=== PATIENT | female | born 1935 | race Caucasian/White ===

== ENCOUNTER 2017-05-04 09:54 | Emergency (ER) | payer MEDICARE, OTHER ==
[2017-05-04 10:04] VITALS: PULSE 86; RESP 18; TEMP 98.4
[2017-05-04] MEDS ORDERED: SODIUM CHLORIDE 0.9% 1,000 ML IV STA (10:18)
[2017-05-04] MEDS ORDERED: SODIUM CHLORIDE 0.9% 500 ML IV STA (10:18)
[2017-05-04] MEDS ORDERED: MORPHINE SULFATE 2 MG/ML SYRINGE IVP STA (10:18)
[2017-05-04] MEDS ORDERED: ONDANSETRON 4 MG/2 ML VIAL IVP STA (10:18)
[2017-05-04] MEDS ORDERED: RX INFO: IV CONTRAST WAS GIVEN 1 EACH MISC MISCELLANE PRN (10:19)
--- NOTE | 2017-05-04 10:21 | ED ---
General Adult HPI - General Chief complaint: Nausea/Vomiting/Diarrhea Stated complaint: hematuria Time Seen by Provider: 05/04/17 10:10 Source: patient, RN notes reviewed Mode of arrival: wheelchair Limitations: no limitations - History of Present Illness Initial comments: Patient 82-year-old female who presents emergency room today with a chief complaint of symptoms of nausea vomiting diarrhea over the last 4-5 days. Patient states that she has seen small amount of blood in the stool as well. She believes is due to a hemorrhoid. She states that the blood is been less and less over the last few days. Patient does admit to chronic pain on the right side of her abdomen due to postherpetic neuralgia. She states pain seems to be worse last few days. She states she's had to kind even drinking keeping anything down due to the nausea vomiting. She denies any other complaints or symptoms at this time. Patient denies any recent fever, chills, shortness of breath, chest pain, back pain, numbness or tingling, dysuria or hematuria, constipation, headaches or visual changes, or any other complaints. - Related Data Home Medications Medication Instructions Recorded Confirmed Ferrous Sulfate [Iron (65 MG 325 mg PO HS 12/24/15 05/04/17 Elemental)] Gabapentin [Neurontin] 300 mg PO Q4H 12/24/15 05/04/17 Metoprolol Tartrate [Lopressor] 100 mg PO BID 12/24/15 05/04/17 Simvastatin [Zocor] 40 mg PO HS 12/24/15 05/04/17 Vits A,C,E/Lutein/Minerals 1 tab PO DAILY 12/24/15 05/04/17 [Ocuvite with Lutein Tablet] traMADol HCL [Ultram] 50 mg PO Q4HR PRN 02/19/16 05/04/17 Glimepiride [Glimepiride] 1 mg PO BID 04/25/16 05/04/17 Lisinopril-Hctz 20-12.5 mg 1 tab PO QAM 04/25/16 05/04/17 [Zestoretic 20-12.5] Nortriptyline [Pamelor] 25 mg PO HS 04/25/16 05/04/17 Pioglitazone [Actos] 30 mg PO QAM 04/25/16 05/04/17 metFORMIN HCL [Glucophage] 500 mg PO BID 04/25/16 05/04/17 Calcium Carbonate [Calcium] 600 mg PO DAILY 05/04/17 05/04/17 Exemestane [Aromasin] 25 mg PO HS 05/04/17 05/04/17 Previous Rx's Medication Instructions Recorded Hydrocortisone Pr Cream 1 applic RECTAL TID #1 tube 05/04/17 [Proctosol-Hc 2.5%] Ondansetron Odt [Zofran ODT] 4 mg PO Q8HR PRN #20 tab 05/04/17 Allergies Allergy/AdvReac Type Severity Reaction Status Date / Time No Known Allergies Allergy Verified 05/04/17 10:35 Review of Systems ROS Statement: Those systems with pertinent positive or pertinent negative responses have been documented in the HPI. ROS Other: All systems not noted in ROS Statement are negative. Past Medical History Past Medical History: Cancer, Diabetes Mellitus, Hyperlipidemia, Hypertension Additional Past Medical History / Comment(s): SHINGLES, RIGHT SIDE ABD. BREAST CANCER 1998 OR, Reoccurence 2009-with 35 radiation treatments. NEW TUMOR FOUND THIS MARCH 2016, APPT WITH DR. MORE. OCC INCONT OF URINE (DEPENDS). "TACHYCARDIA". BOWEL OBSTRUCTION. History of Any Multi-Drug Resistant Organisms: None Reported Past Surgical History: Appendectomy, Bowel Resection, Breast Surgery, Cholecystectomy Additional Past Surgical History / Comment(s): 03/25/16 tumor left chest area ( positive). 12/26/15 Bowel resection. 1998, Bilateral mastectomy. JAMES CATARACTS. Past Anesthesia/Blood Transfusion Reactions: No Reported Reaction Past Psychological History: No Psychological Hx Reported Smoking Status: Former smoker Past Alcohol Use History: None Reported Past Drug Use History: None Reported - Past Family History Father Family Medical History: Myocardial Infarction ([place]) Mother Family Medical History: Cancer Additional Family Medical History / Comment(s): BREAST CANCER General Exam - General Exam Comments Initial Comments: General: The patient is awake and alert, in no distress, and does not appear acutely ill. Eye: Pupils are equal, round and reactive to light, extra-ocular movements are intact. No nystagmus. There is normal conjunctiva bilaterally. No signs of icterus. Ears, nose, mouth and throat: There are moist mucous membranes and no oral lesions. Neck: The neck is supple, there is no tenderness or JVD. Cardiovascular: There is a regular rate and rhythm. No murmur, rub or gallop is appreciated. Respiratory: Lungs are clear to auscultation, respirations are non-labored, breath sounds are equal. No wheezes, stridor, rales, or rhonchi. Gastrointestinal: Normal appearance abdomen. Normal bowel sounds. Soft on palpation. Patient does have mild tenderness on the right side of the abdomen. No tenderness on the left. No rebound tenderness. No guarding. Musculoskeletal: Normal ROM, no tenderness. Strength 5/5. Sensation intact. Pulses equal bilaterally 2+. Neurological: A&O x 3. CN II-XII intact, There are no obvious motor or sensory deficits. Coordination appears grossly intact. Speech is normal. Skin: Skin is warm and dry and no rashes or lesions are noted. Psychiatric: Cooperative, appropriate mood & affect, normal judgment. Limitations: no limitations Course Vital Signs 05/04/17 10:01 Temperature 98.4 F Pulse Rate 86 Respiratory 18 Rate Blood Pressure 136/80 O2 Sat by Pulse 97 Oximetry Medical Decision Making - Medical Decision Making Case discussed in detail with attending physician Patient reexamined at this time shows no signs of distress resting comfortably. Patient's labs been reviewed. CT of the abdomen and pelvis shows ileus versus enteritis. At this time patient resting comfortably. Patient feels well here like to be discharged home will be given a prescription for Zofran. Advised to increase her oral fluids staying hydrated. Patient states she knows there is a hemorrhoid back. She declined a rectal exam here in the emergency room. She will be given a prescription for some cramping. Advised follow-up the family doctor. Advised return if symptoms increase or worsen. Patient and family members at bedside state understanding and agreement with this plan. - Lab Data Result diagrams: 05/04/17 10:37 05/04/17 10:37 Lab Results 05/04/17 05/04/17 05/04/17 Range/Units 10:37 10:37 10:37 WBC 7.6 (3.8-10.6) k/uL RBC 3.46 L (3.80-5.40) m/uL Hgb 10.8 L (11.4-16.0) gm/dL Hct 33.9 L (34.0-46.0) % MCV 98.1 (80.0-100.0) fL MCH 31.3 (25.0-35.0) pg MCHC 31.9 (31.0-37.0) g/dL RDW 14.7 (11.5-15.5) % Plt Count 250 (150-450) k/uL Neutrophils % 76 % Lymphocytes % 14 % Monocytes % 6 % Eosinophils % 1 % Basophils % 1 % Neutrophils # 5.8 (1.3-7.7) k/uL Lymphocytes # 1.1 (1.0-4.8) k/uL Monocytes # 0.5 (0-1.0) k/uL Eosinophils # 0.1 (0-0.7) k/uL Basophils # 0.1 (0-0.2) k/uL PT 11.2 (9.0-12.0) sec INR 1.1 (<1.2) APTT 22.8 (22.0-30.0) sec Sodium 141 (137-145) mmol/L Potassium 4.0 (3.5-5.1) mmol/L Chloride 102 (98-107) mmol/L Carbon Dioxide 30 (22-30) mmol/L Anion Gap 9 mmol/L BUN 29 H (7-17) mg/dL Creatinine 0.96 (0.52-1.04) mg/dL Est GFR (MDRD) Af Amer >60 (>60 ml/min/1.73 sqM) Est GFR (MDRD) Non-Af 56 (>60 ml/min/1.73 sqM) Glucose 152 H (74-99) mg/dL Calcium 9.3 (8.4-10.2) mg/dL Total Bilirubin 0.2 (0.2-1.3) mg/dL AST 32 (14-36) U/L ALT 33 (9-52) U/L Alkaline Phosphatase 54 (38-126) U/L Total Protein 6.1 L (6.3-8.2) g/dL Albumin 3.6 (3.5-5.0) g/dL Amylase 31 (30-110) U/L Lipase 167 (23-300) U/L Disposition Clinical Impression: Nausea vomiting and diarrhea Disposition: HOME SELF-CARE Condition: Good Instructions: Acute Nausea and Vomiting (ED) Additional Instructions: Please follow-up the family doctor next 1-2 days. Please use medications as prescribed. Please return to emergency room if any symptoms increase or worsen or for any other concerns. Prescriptions: Hydrocortisone Pr Cream [Proctosol-Hc 2.5%] 1 applic RECTAL TID #1 tube Ondansetron Odt [Zofran ODT] 4 mg PO Q8HR PRN #20 tab PRN Reason: Nausea Referrals: Milan Chu MD [Primary Care Provider] - 1-2 days Time of Disposition: 12:43
[2017-05-04 11:06] LABS: Basophils # (A) 0.1 k/uL (0-0.2); Basophils % (A) 1 %; CH 32.2; Eosinophils # (A) 0.1 k/uL (0-0.7); Eosinophils % (A) 1 %; HCT 33.9 % (34.0-46.0); HDW 2.44; HGB 10.8 gm/dL (11.4-16.0); Luc # (Auto) 0.18; Luc % (Auto) 2; Lymphocytes # (A) 1.1 k/uL (1.0-4.8); Lymphocytes % (A) 14 %; MCH 31.3 pg (25.0-35.0); MCHC 31.9 g/dL (31.0-37.0); MCV 98.1 fL (80.0-100.0); Mean Platelet Volume 7.1; Monocytes # (A) 0.5 k/uL (0-1.0); Monocytes % (A) 6 %; Neutrophils # (A) 5.8 k/uL (1.3-7.7); Neutrophils % (A) 76 %; RBC 3.46 m/uL (3.80-5.40); RDW 14.7 % (11.5-15.5); WBC 7.6 k/uL (3.8-10.6); WBC (Perox) 7.66
[2017-05-04 11:18] LABS: ALT 33 U/L (9-52); AST 32 U/L (14-36); Alkaline Phosphatase 54 U/L (38-126); Amylase 31 U/L (30-110); Anion Gap 9 mmol/L; Blood Urea Nitrogen 29 mg/dL (7-17); Calcium 9.3 mg/dL (8.4-10.2); Carbon Dioxide 30 mmol/L (22-30); Chloride 102 mmol/L (98-107); Glucose 152 mg/dL (74-99); Non-African American GFR(MDRD) 56 (>60 ml/min/1.73 sqM); Sodium 141 mmol/L (137-145); Total Bilirubin 0.2 mg/dL (0.2-1.3); Total Protein 6.1 g/dL (6.3-8.2)
[2017-05-04 11:39] LABS: INR 1.1 (<1.2); Partial Thromboplastin Time 22.8 sec (22.0-30.0); Prothrombin Time 11.2 sec (9.0-12.0)
--- NOTE | 2017-05-04 12:23 | CT ---
EXAMINATION TYPE: CT abdomen pelvis w con DATE OF EXAM: 05/04/2017 COMPARISON: CT chest abdomen pelvis 02/19/2016 INDICATION: pain, hematuria, diarrhea, loss of appetite DLP: 334.2 mGycm, Automated exposure control for dose reduction was used. CONTRAST: 80 mL of Visipaque 320. Study performed without Oral Contrast TECHNIQUE: Axial images were obtained from above the diaphragm to the pubic rami in the axial plane a t 5 mm thick sections. Reconstructed images are reviewed on the computer in the coronal plane. FINDINGS: Limited CT sections are obtained the lung bases. Some streak opacities in the posterior lateral righ t lung base. Bilateral breast prostheses are likely present. Vascular calcifications within the desce nding thoracic aorta. A small hiatal hernia is present. CT ABDOMEN: Liver: Normal Spleen: Normal Pancreas: Atrophic Adrenal glands: The adrenal glands are normal. Gallbladder: Surgically absent Kidneys: No masses are evident. No hydronephrosis is present. Small cortical renal cysts are presen t bilaterally. Delayed images were obtained through the kidneys, which remain unremarkable. Aorta: Vascular calcification is within the aorta. There is some minimal fusiform prominence of the mid to distal abdominal aorta measuring 2.0 cm AP dimension. Inferior vena cava: Normal. CT PELVIS: Proximal small bowel loops appear prominent containing fluid. These loops are slightly dilated. Some wall enhancement may be present. Consider enteritis in the left upper quadrant. Note is made of diver ticular changes within the sigmoid colon. There are loops of bowel which are incompletely distended o r lack oral contrast limiting their evaluation. Appendix: Normal as visualized. Urinary bladder: Normal. Genitourinary structures: Uterus is unremarkable. Adnexal regions are clear. Osseous structures: No suspicious lytic or sclerotic lesions. IMPRESSIONS: 1. Mild dilated small bowel loops with prominent wall visualization. Correlate for ileus or regional enteritis in left upper quadrant. 2. No suspicious changes to suggest obstruction. 3. Diverticulosis without acute diverticulitis. 4. Small hiatal hernia.
[2017-05-04 12:46] VITALS: BP 122/56
== END 2017-05-04 12:51 | disposition home or self-care (01) ==
LOC: EC 09:54
DX: R11.2 Nausea with vomiting, unspecified (principal); R19.7 Diarrhea, unspecified; E11.9 Type 2 diabetes mellitus without complications; E78.5 Hyperlipidemia, unspecified; I10 Essential (primary) hypertension; Z85.3 Personal history of malignant neoplasm of breast; Z87.891 Personal history of nicotine dependence; Z79.84 Long term (current) use of oral hypoglycemic drugs; Z79.899 Other long term (current) drug therapy
CPT/HCPCS: 36415; 80053; 82150; 83690; 85025; 85610; 85730; 74177; 99284; 96374; 96375; 96361 ×2; Q9967; J2405; J2270

== ENCOUNTER 2017-05-14 13:46 | Emergency (ER) | payer MEDICARE ==
[2017-05-14 14:01] VITALS: RESP 18
--- NOTE | 2017-05-14 14:20 | ED ---
Abdominal Pain HPI - General Chief Complaint: Abdominal Pain Stated Complaint: Abd Pain Time Seen by Provider: 05/14/17 14:08 Source: patient, RN/MD Mode of arrival: EMS Limitations: no limitations - History of Present Illness Initial Comments: Patient is an 82-year-old female with past medical history significant for chronic right sided abdominal pain who presents to the emergency department for evaluation of decreased oral intake, concern for dehydration and altered mental status. Patient was seen and evaluated in the emergency department 10 days ago which time a CT revealed mild inflammation of the small bowel but no signs of acute small bowel obstruction or diverticulitis. At that time the patient was experiencing diarrhea with bleeding hemorrhoids. Patient was discharged home and reported she did okay for a few days. Family states that over the past few days she has not been eating or drinking much and they have become concerned that she may be dehydrated. The daughter at bedside states that last night the patient seemed confused and was possibly hallucinating, daughter states that this is happened before when her mother is dehydrated. The patient states that she doesn't want to eat or drink and that there is nothing that sounds appetizing to her. She denies any nausea. Her states that she occasionally has small episodes of spitting up or vomiting after eating most recently was last night, she had small-volume nonbloody nonbilious emesis. Patient states that her abdominal pain has not changed but has remained constant right sided for about a year and a half. Patient has followed with her primary care physician and been evaluated in the emergency department for this chronic pain. Her primary care physician his attributed this pain to postherpetic neuralgia. She has not followed up with a neurologist or roofing supervisor regarding this pain. - Related Data Home Medications Medication Instructions Recorded Confirmed Metoprolol Tartrate [Lopressor] 100 mg PO BID 12/24/15 05/14/17 Morphine Sulfate ER [Ms Contin 15 mg PO Q12HR 05/14/17 05/14/17 15Mg] Previous Rx's Medication Instructions Recorded Ciprofloxacin HCl [Cipro] 500 mg PO Q12HR #14 tablet 05/14/17 Sennosides [Senna] 8.6 mg PO DAILY #30 tablet 05/14/17 Allergies Allergy/AdvReac Type Severity Reaction Status Date / Time No Known Allergies Allergy Verified 05/14/17 14:18 Review of Systems ROS Statement: Those systems with pertinent positive or pertinent negative responses have been documented in the HPI. ROS Other: All systems not noted in ROS Statement are negative. Constitutional: Reports: chills, weakness (generalized). Denies: fever Eyes: Denies: vision change ENT: Denies: throat pain Respiratory: Denies: cough, dyspnea Cardiovascular: Denies: chest pain, palpitations, dyspnea on exertion Endocrine: Reports: fatigue Gastrointestinal: Reports: abdominal pain, vomiting, constipation (cannot recall last BM). Denies: nausea, diarrhea, hematemesis, melena, hematochezia Genitourinary: Denies: dysuria, frequency Musculoskeletal: Denies: back pain Skin: Denies: rash, change in color Neurological: Denies: headache Hematological/Lymphatic: Reports: easy bruising Past Medical History Past Medical History: Cancer, Diabetes Mellitus, Hyperlipidemia, Hypertension Additional Past Medical History / Comment(s): SHINGLES, RIGHT SIDE ABD. BREAST CANCER 1998 OR, Reoccurence 2009-with 35 radiation treatments. NEW TUMOR FOUND THIS MARCH 2016, APPT WITH DR. MORE. OCC INCONT OF URINE (DEPENDS). "TACHYCARDIA". BOWEL OBSTRUCTION. History of Any Multi-Drug Resistant Organisms: None Reported Past Surgical History: Appendectomy, Bowel Resection, Breast Surgery, Cholecystectomy Additional Past Surgical History / Comment(s): 03/25/16 tumor left chest area ( positive). 12/26/15 Bowel resection. 1998, Bilateral mastectomy. JAMES CATARACTS. Past Anesthesia/Blood Transfusion Reactions: No Reported Reaction Past Psychological History: No Psychological Hx Reported Smoking Status: Former smoker Past Alcohol Use History: None Reported Past Drug Use History: None Reported - Past Family History Father Family Medical History: Myocardial Infarction ([place]) Mother Family Medical History: Cancer Additional Family Medical History / Comment(s): BREAST CANCER General Exam Limitations: no limitations General appearance: alert, in no apparent distress Head exam: Present: atraumatic, normocephalic Eye exam: Present: normal appearance, PERRL ENT exam: Present: normal exam Neck exam: Present: normal inspection Respiratory exam: Present: normal lung sounds bilaterally. Absent: respiratory distress Cardiovascular Exam: Present: regular rate, normal rhythm GI/Abdominal exam: Present: soft, tenderness, guarding, normal bowel sounds. Absent: distended, rebound, rigid, hyperactive bowel sounds, hypoactive bowel sounds, organomegaly, mass Extremities exam: Present: normal inspection Neurological exam: Present: alert Psychiatric exam: Present: depressed, flat affect Skin exam: Present: warm, dry (bruises noted on bilateral arms, thin skin with easy bruising) Course Vital Signs 05/14/17 05/14/17 05/14/17 13:58 16:16 18:21 Temperature 97.6 F 98.0 F 98.0 F Pulse Rate 72 91 98 Respiratory 18 18 18 Rate Blood Pressure 157/67 150/68 161/73 O2 Sat by Pulse 96 97 98 Oximetry - Reevaluation(s) Reevaluation #1: Lab and x-ray results were discussed with the patient and family, advised that I recommend digital disimpaction followed by enema for relief of fecal impaction. Patient was digitally disimpacted with large volume of firm stool removed 05/14/17 16:43 Reevaluation #2: Patient tolerated enema and had a large bowel movement afterwards. Patient reported feeling better after the bowel movement. 05/14/17 17:40 Medical Decision Making - Medical Decision Making Patient was seen and evaluated, vital signs were reviewed History obtained from the patient, family at bedside and medical records History and physical exam consistent with chronic abdominal pain concern for constipation likely secondary to narcotic pain medication use Labs and x-rays ordered Labs reviewed Urinalysis suggestive of possible urinary tract infection X-ray consistent with fecal impaction Patient was digitally disimpacted with large volume of hard stool removed Patient tolerated enema and subsequently had very large bowel movement with improvement in abdominal pain Or questions pertaining to care were answered for the patient as well as her family. Patient was discharged home with prescription for stool softener and advised to follow-up with her primary care doctor or return to the ER for any acute worsening. Patient and family expressed understanding and agreement with the plan. - Lab Data Result diagrams: 05/14/17 14:20 05/14/17 14:20 Lab Results 05/14/17 05/14/17 05/14/17 Range/Units 13:10 14:20 14:20 WBC 6.3 (3.8-10.6) k/uL RBC 4.11 (3.80-5.40) m/uL Hgb 13.1 (11.4-16.0) gm/dL Hct 38.7 (34.0-46.0) % MCV 94.2 (80.0-100.0) fL MCH 31.8 (25.0-35.0) pg MCHC 33.8 (31.0-37.0) g/dL RDW 14.0 (11.5-15.5) % Plt Count 269 (150-450) k/uL Neutrophils % 73 % Lymphocytes % 16 % Monocytes % 6 % Eosinophils % 3 % Basophils % 0 % Neutrophils # 4.6 (1.3-7.7) k/uL Lymphocytes # 1.0 (1.0-4.8) k/uL Monocytes # 0.4 (0-1.0) k/uL Eosinophils # 0.2 (0-0.7) k/uL Basophils # 0.0 (0-0.2) k/uL Sodium 139 (137-145) mmol/L Potassium 4.7 (3.5-5.1) mmol/L Chloride 102 (98-107) mmol/L Carbon Dioxide 25 (22-30) mmol/L Anion Gap 12 mmol/L BUN 22 H (7-17) mg/dL Creatinine 0.81 (0.52-1.04) mg/dL Est GFR (MDRD) Af Amer >60 (>60 ml/min/1.73 sqM) Est GFR (MDRD) Non-Af >60 (>60 ml/min/1.73 sqM) Glucose 146 H (74-99) mg/dL Calcium 9.5 (8.4-10.2) mg/dL Total Bilirubin 0.5 (0.2-1.3) mg/dL AST 32 (14-36) U/L ALT 27 (9-52) U/L Alkaline Phosphatase 56 (38-126) U/L Total Protein 7.0 (6.3-8.2) g/dL Albumin 4.0 (3.5-5.0) g/dL Urine Color Yellow Urine Appearance Clear (Clear) Urine pH 5.5 (5.0-8.0) Ur Specific [place] 1.021 (1.001-1.035) Urine Protein 1+ H (Negative) Urine Glucose (UA) Negative (Negative) Urine Ketones 2+ H (Negative) Urine Blood Trace H (Negative) Urine Nitrite Negative (Negative) Urine Bilirubin Negative (Negative) Urine Urobilinogen <2.0 (<2.0) mg/dL Ur Leukocyte Esterase Trace H (Negative) Urine RBC 5 (0-5) /hpf Urine WBC 7 H (0-5) /hpf Urine Bacteria Rare H (None) /hpf Urine Mucus Rare H (None) /hpf Disposition Clinical Impression: Colitis, Fecal impaction in rectum, Narcotic bowel syndrome Disposition: HOME SELF-CARE Condition: Good Prescriptions: Ciprofloxacin HCl [Cipro] 500 mg PO Q12HR #14 tablet Sennosides [Senna] 8.6 mg PO DAILY #30 tablet Referrals: Milan Chu MD [Primary Care Provider] - 1-2 days Time of Disposition: 17:41
[2017-05-14] MEDS ORDERED: SODIUM CHLORIDE 0.9% 1,000 ML IV ONE (14:39)
[2017-05-14 14:47] LABS: Basophils % (A) 0 %; CH 30.9; Eosinophils # (A) 0.2 k/uL (0-0.7); Eosinophils % (A) 3 %; HCT 38.7 % (34.0-46.0); HDW 2.63; HGB 13.1 gm/dL (11.4-16.0); Luc # (Auto) 0.15; Luc % (Auto) 2; Lymphocytes % (A) 16 %; MCH 31.8 pg (25.0-35.0); MCHC 33.8 g/dL (31.0-37.0); MCV 94.2 fL (80.0-100.0); Mean Platelet Volume 6.8; Monocytes # (A) 0.4 k/uL (0-1.0); Monocytes % (A) 6 %; Neutrophils # (A) 4.6 k/uL (1.3-7.7); Neutrophils % (A) 73 %; RBC 4.11 m/uL (3.80-5.40); WBC 6.3 k/uL (3.8-10.6); WBC (Perox) 6.53
[2017-05-14 14:57] LABS: ALT 27 U/L (9-52); AST 32 U/L (14-36); Alkaline Phosphatase 56 U/L (38-126); Anion Gap 12 mmol/L; Blood Urea Nitrogen 22 mg/dL (7-17); Calcium 9.5 mg/dL (8.4-10.2); Carbon Dioxide 25 mmol/L (22-30); Chloride 102 mmol/L (98-107); Glucose 146 mg/dL (74-99); Non-African American GFR(MDRD) >60 (>60 ml/min/1.73 sqM); Potassium 4.7 mmol/L (3.5-5.1); Sodium 139 mmol/L (137-145); Total Bilirubin 0.5 mg/dL (0.2-1.3)
--- NOTE | 2017-05-14 15:26 | XR ---
EXAMINATION TYPE: XR abdomen acute w cxr DATE OF EXAM: 05/14/2017 COMPARISON: 02/22/2016 HISTORY: Abdominal pain, nausea, constipation, diarrhea and fever with confusion. TECHNIQUE: Supine and upright views of the abdomen are obtained. Single frontal chest radiograph was obtained. FINDINGS: There is no focal consolidation, pleural effusion or pneumothorax. Cardiomediastinal silhouette is wi thin normal limits. Osseous structures appear intact. There is no evidence for pneumoperitoneum. Right upper quadrant cholecystectomy clips are seen. There is gaseous distention of the large bowel with fecal impaction measuring up to 7.2 cm. Multiple loops of mildly dilated small bowel are clustered within the left upper abdomen with apparent bowel w all thickening measuring up to 3.8 cm. No sizeable air fluid levels. No mass effects are seen. No unusual calcifications. IMPRESSION: 1. Mildly dilated focal left upper quadrant small bowel loops may possibly relate to focal enteritis as there appears to be bowel wall thickening with reactive ileus. 2. Gaseous distention of the large bowel with fecal impaction.
[2017-05-14 15:27] LABS: Appearance,Urine Clear (Clear); Bacteria,Urine Rare /hpf; Bilirubin,Urine Negative (Negative); Glucose,Urine (UA) Negative (Negative); Ketones,Urine 2+ (Negative); Leukocyte Esterase,Urine Trace (Negative); Mucus,Urine Rare /hpf; Nitrite,Urine Negative (Negative); PH, Urine 5.5 (5.0-8.0); Particle Count 13037; Protein,Urine 1+ (Negative); RBC,Urine 5 /hpf (0-5); Specific Gravity,Urine 1.021 (1.001-1.035); UA Billing (MACRO vs. MICRO) MICRO; Urobilinogen,Urine <2.0 mg/dL (<2.0); WBC,Urine 7 /hpf (0-5)
[2017-05-14 16:17] VITALS: TEMP 98
[2017-05-14] MEDS ORDERED: CIPROFLOXACIN HCL 500 MG TAB PO STA (17:39)
[2017-05-14 18:23] VITALS: BP 161/73; PULSE 98
== END 2017-05-14 18:23 | disposition home or self-care (01) ==
LOC: EC 13:46
DX: K52.9 Noninfective gastroenteritis and colitis, unspecified (principal); K56.41 Fecal impaction; K58.9 Irritable bowel syndrome, unspecified; T40.605A Adverse effect of unspecified narcotics, initial encounter; I10 Essential (primary) hypertension; Z85.3 Personal history of malignant neoplasm of breast; Z87.891 Personal history of nicotine dependence; Z79.891 Long term (current) use of opiate analgesic; Z79.899 Other long term (current) drug therapy
CPT/HCPCS: 36415; 74022; 80053; 81001; 85025; 87086; 93005; 96360; 96361; 99285

== ENCOUNTER 2018-05-23 11:06 | Emergency (ER) | payer MEDICARE ==
[2018-05-23 11:21] VITALS: TEMP 99.3
[2018-05-23] MEDS ORDERED: SODIUM CHLORIDE 0.9% 500 ML IV STA (11:26)
[2018-05-23] MEDS ORDERED: SODIUM CHLORIDE 0.9% 1,000 ML IV STA (11:26)
[2018-05-23] MEDS ORDERED: ONDANSETRON 4 MG/2 ML VIAL IVP STA (11:26)
[2018-05-23] MEDS ORDERED: MORPHINE SULFATE 4 MG/ML SYRINGE IV STA (11:26)
--- NOTE | 2018-05-23 11:37 | ED ---
Nausea/Vomiting/Diarrhea HPI - General Chief complaint: Nausea/Vomiting/Diarrhea Stated complaint: N&V Time Seen by Provider: 05/23/18 11:19 Source: patient, EMS, RN notes reviewed Mode of arrival: EMS Limitations: no limitations - History of Present Illness Initial comments: This an 83-year-old female presents emergency department via EMS with family chief complaint of nausea vomiting diarrhea and weakness. Symptoms have been present for last 3 days. She's been unable to keep anything down and she has decreased appetite. Patient denies any fever but admits to some chills. Denies chest pain or shortness of breath. Patient states that she's had prior abdominal surgeries and instructions. Patient has seen Dr. jordan and Dr. Ja Hampton. Patient states that she feels very weak, run down at this point. She has no dysuria no hematuria. Family states that she is not her usual self as she is very unsteady. - Related Data Home Medications Medication Instructions Recorded Confirmed Metoprolol Tartrate [Lopressor] 100 mg PO BID 12/24/15 05/14/17 Morphine Sulfate ER [Ms Contin 15 mg PO Q12HR 05/14/17 05/14/17 15Mg] Previous Rx's Medication Instructions Recorded Ciprofloxacin HCl [Cipro] 500 mg PO Q12HR #14 tablet 05/14/17 Sennosides [Senna] 8.6 mg PO DAILY #30 tablet 05/14/17 Nitrofurantoin Monohyd/M-Cryst 100 mg PO Q12HR #10 cap 05/23/18 [Macrobid] Ondansetron Odt [Zofran Odt] 4 mg PO Q8HR PRN #14 tab 05/23/18 Allergies Allergy/AdvReac Type Severity Reaction Status Date / Time No Known Allergies Allergy Verified 05/14/17 14:18 Review of Systems ROS Statement: Those systems with pertinent positive or pertinent negative responses have been documented in the HPI. ROS Other: All systems not noted in ROS Statement are negative. Past Medical History Past Medical History: Atrial Fibrillation, Cancer, Diabetes Mellitus, Hyperlipidemia, Hypertension Additional Past Medical History / Comment(s): SHINGLES, RIGHT SIDE ABD. BREAST CANCER 1998 OR, Reoccurence 2009-with 35 radiation treatments. NEW TUMOR FOUND THIS MARCH 2016, APPT WITH DR. MORE. OCC INCONT OF URINE (DEPENDS). "TACHYCARDIA". BOWEL OBSTRUCTION. History of Any Multi-Drug Resistant Organisms: None Reported Past Surgical History: Appendectomy, Bowel Resection, Breast Surgery, Cholecystectomy Additional Past Surgical History / Comment(s): 03/25/16 tumor left chest area ( positive). 12/26/15 Bowel resection. 1999, Bilateral mastectomy. JAMES CATARACTS. Past Anesthesia/Blood Transfusion Reactions: No Reported Reaction Past Psychological History: No Psychological Hx Reported Smoking Status: Former smoker Past Alcohol Use History: None Reported Past Drug Use History: None Reported - Past Family History Father Family Medical History: Myocardial Infarction ([place]) Mother Family Medical History: Cancer Additional Family Medical History / Comment(s): BREAST CANCER General Exam Limitations: no limitations General appearance: alert, in no apparent distress Head exam: Present: atraumatic, normocephalic, normal inspection Eye exam: Present: normal appearance, PERRL, EOMI. Absent: scleral icterus, conjunctival injection, periorbital swelling ENT exam: Present: normal exam, normal oropharynx, mucous membranes moist Neck exam: Present: normal inspection, full ROM. Absent: tenderness, meningismus, lymphadenopathy Respiratory exam: Present: normal lung sounds bilaterally. Absent: respiratory distress, wheezes, rales, rhonchi, stridor Cardiovascular Exam: Present: regular rate, normal rhythm, normal heart sounds. Absent: systolic murmur, diastolic murmur, rubs, gallop, clicks GI/Abdominal exam: Present: soft, tenderness (Mild to moderate right-sided), normal bowel sounds. Absent: distended, guarding, rebound, rigid Back exam: Absent: CVA tenderness (R), CVA tenderness (L) Skin exam: Present: warm, dry, intact, normal color. Absent: rash Course Vital Signs 05/23/18 05/23/18 05/23/18 11:11 12:00 13:00 Temperature 99.3 F Pulse Rate 78 84 90 Respiratory 18 16 16 Rate Blood Pressure 157/72 178/78 160/70 O2 Sat by Pulse 96 94 L 93 L Oximetry 05/23/18 14:23 Temperature Pulse Rate 98 Respiratory 16 Rate Blood Pressure 163/74 O2 Sat by Pulse 91 L Oximetry Medical Decision Making - Medical Decision Making 83-year-old female presents emergency department for nausea vomiting diarrhea. Patient had lab work, IV hydration, antiemetics. Family is concerned due to her condition CT was obtained at this time which showed evidence of an ileus. Patient has had no repeat episodes of vomiting. Patient states she is stable and feels much improved at this time. She will follow-up outpatient return for any worsening symptoms. - Lab Data Result diagrams: 05/23/18 11:45 05/23/18 11:45 Lab Results 05/23/18 05/23/18 05/23/18 Range/Units 11:45 11:45 11:45 WBC 8.0 (3.8-10.6) k/uL RBC 3.95 (3.80-5.40) m/uL Hgb 11.7 (11.4-16.0) gm/dL Hct 36.6 (34.0-46.0) % MCV 92.7 (80.0-100.0) fL MCH 29.7 (25.0-35.0) pg MCHC 32.1 (31.0-37.0) g/dL RDW 13.5 (11.5-15.5) % Plt Count 313 (150-450) k/uL Neutrophils % 75 % Lymphocytes % 16 % Monocytes % 7 % Eosinophils % 0 % Basophils % 0 % Neutrophils # 6.0 (1.3-7.7) k/uL Lymphocytes # 1.3 (1.0-4.8) k/uL Monocytes # 0.5 (0-1.0) k/uL Eosinophils # 0.0 (0-0.7) k/uL Basophils # 0.0 (0-0.2) k/uL Sodium 140 (137-145) mmol/L Potassium 3.3 L (3.5-5.1) mmol/L Chloride 101 (98-107) mmol/L Carbon Dioxide 28 (22-30) mmol/L Anion Gap 11 mmol/L BUN 34 H (7-17) mg/dL Creatinine 0.66 (0.52-1.04) mg/dL Est GFR (CKD-EPI)AfAm >90 (>60 ml/min/1.73 sqM) Est GFR (CKD-EPI)NonAf 83 (>60 ml/min/1.73 sqM) Glucose 174 H (74-99) mg/dL Plasma Lactic Acid [place] 1.0 (0.7-2.0) mmol/L Calcium 8.9 (8.4-10.2) mg/dL Magnesium 1.7 (1.6-2.3) mg/dL Total Bilirubin 0.5 (0.2-1.3) mg/dL AST 36 (14-36) U/L ALT 24 (9-52) U/L Alkaline Phosphatase 53 (38-126) U/L Troponin I (0.000-0.034) ng/mL Total Protein 6.5 (6.3-8.2) g/dL Albumin 3.8 (3.5-5.0) g/dL Amylase 46 (30-110) U/L Lipase 270 (23-300) U/L Urine Color Urine Appearance (Clear) Urine pH (5.0-8.0) Ur Specific [place] (1.001-1.035) Urine Protein (Negative) Urine Glucose (UA) (Negative) Urine Ketones (Negative) Urine Blood (Negative) Urine Nitrite (Negative) Urine Bilirubin (Negative) Urine Urobilinogen (<2.0) mg/dL Ur Leukocyte Esterase (Negative) Urine RBC (0-5) /hpf Urine WBC (0-5) /hpf Urine Bacteria (None) /hpf Urine Mucus (None) /hpf 05/23/18 05/23/18 Range/Units 11:45 13:00 WBC (3.8-10.6) k/uL RBC (3.80-5.40) m/uL Hgb (11.4-16.0) gm/dL Hct (34.0-46.0) % MCV (80.0-100.0) fL MCH (25.0-35.0) pg MCHC (31.0-37.0) g/dL RDW (11.5-15.5) % Plt Count (150-450) k/uL Neutrophils % % Lymphocytes % % Monocytes % % Eosinophils % % Basophils % % Neutrophils # (1.3-7.7) k/uL Lymphocytes # (1.0-4.8) k/uL Monocytes # (0-1.0) k/uL Eosinophils # (0-0.7) k/uL Basophils # (0-0.2) k/uL Sodium (137-145) mmol/L Potassium (3.5-5.1) mmol/L Chloride (98-107) mmol/L Carbon Dioxide (22-30) mmol/L Anion Gap mmol/L BUN (7-17) mg/dL Creatinine (0.52-1.04) mg/dL Est GFR (CKD-EPI)AfAm (>60 ml/min/1.73 sqM) Est GFR (CKD-EPI)NonAf (>60 ml/min/1.73 sqM) Glucose (74-99) mg/dL Plasma Lactic Acid [place] (0.7-2.0) mmol/L Calcium (8.4-10.2) mg/dL Magnesium (1.6-2.3) mg/dL Total Bilirubin (0.2-1.3) mg/dL AST (14-36) U/L ALT (9-52) U/L Alkaline Phosphatase (38-126) U/L Troponin I 0.022 (0.000-0.034) ng/mL Total Protein (6.3-8.2) g/dL Albumin (3.5-5.0) g/dL Amylase (30-110) U/L Lipase (23-300) U/L Urine Color Yellow Urine Appearance Clear (Clear) Urine pH 5.5 (5.0-8.0) Ur Specific [place] 1.021 (1.001-1.035) Urine Protein 2+ H (Negative) Urine Glucose (UA) Negative (Negative) Urine Ketones 2+ H (Negative) Urine Blood Negative (Negative) Urine Nitrite Positive H (Negative) Urine Bilirubin Negative (Negative) Urine Urobilinogen <2.0 (<2.0) mg/dL Ur Leukocyte Esterase Negative (Negative) Urine RBC 1 (0-5) /hpf Urine WBC 3 (0-5) /hpf Urine Bacteria Many H (None) /hpf Urine Mucus Rare H (None) /hpf - EKG Data EKG Comments: EKG performed at 11:33 normal sinus rhythm with rate of 88 OR 172 QRS 80 QT/QTC 356/4:30 Disposition Clinical Impression: Nausea & vomiting, Abdominal pain, UTI (urinary tract infection) Disposition: HOME SELF-CARE Condition: Stable Instructions: Acute Nausea and Vomiting (ED) Additional Instructions: Please return to the Emergency Department if symptoms worsen or any other concerns. Prescriptions: Nitrofurantoin Monohyd/M-Cryst [Macrobid] 100 mg PO Q12HR #10 cap Ondansetron Odt [Zofran Odt] 4 mg PO Q8HR PRN #14 tab PRN Reason: Nausea Is patient prescribed a controlled substance at d/c from ED?: No Referrals: Milan Chu MD [Primary Care Provider] - 1-2 days Time of Disposition: 14:51
[2018-05-23 11:55] LABS: Basophils % (A) 0 %; Eosinophils % (A) 0 %; HCT 36.6 % (34.0-46.0); HGB 11.7 gm/dL (11.4-16.0); Lymphocytes # (A) 1.3 k/uL (1.0-4.8); Lymphocytes % (A) 16 %; MCH 29.7 pg (25.0-35.0); MCHC 32.1 g/dL (31.0-37.0); MCV 92.7 fL (80.0-100.0); Mean Platelet Volume 7.2; Monocytes # (A) 0.5 k/uL (0-1.0); Monocytes % (A) 7 %; Neutrophils % (A) 75 %; Platelet Count 313 k/uL (150-450); RBC 3.95 m/uL (3.80-5.40); RDW 13.5 % (11.5-15.5)
[2018-05-23 12:04] LABS: ALT 24 U/L (9-52); AST 36 U/L (14-36); Albumin 3.8 g/dL (3.5-5.0); Alkaline Phosphatase 53 U/L (38-126); Amylase 46 U/L (30-110); Anion Gap 11 mmol/L; Blood Urea Nitrogen 34 mg/dL (7-17); Calcium 8.9 mg/dL (8.4-10.2); Carbon Dioxide 28 mmol/L (22-30); Chloride 101 mmol/L (98-107); Glucose 174 mg/dL (74-99); Lipase 270 U/L (23-300); Magnesium 1.7 mg/dL (1.6-2.3); Potassium 3.3 mmol/L (3.5-5.1); Sodium 140 mmol/L (137-145); Total Bilirubin 0.5 mg/dL (0.2-1.3); Total Protein 6.5 g/dL (6.3-8.2)
--- NOTE | 2018-05-23 12:23 | XR ---
EXAMINATION TYPE: XR chest 2V DATE OF EXAM: 05/23/2018 HISTORY: Cough/pain. REFERENCE: Previous study dated 02/21/2016. FINDINGS: There has been a previous left axillary dissection. Lung volumes are prominent. The heart i s mildly prominent. The lungs appear clear. Pleural spaces are clear. IMPRESSION: 1. MILD CARDIOMEGALY. 2. CORRELATE FOR COPD.
--- NOTE | 2018-05-23 12:24 | XR ---
EXAMINATION TYPE: XR KUB , ONE VIEW DATE OF EXAM ORDERED: 05/23/2018 HISTORY: pain. COMPARISON: Previous study dated 02/20/2016. FINDINGS: The abdominal gas pattern is within normal limits. There is no evidence of obstruction or gross free air. No unusual calcifications are seen. The gallbladder is been removed. IMPRESSION: NO ACUTE INTRA-ABDOMINAL ABNORMALITY.
[2018-05-23 13:16] LABS: Appearance,Urine Clear (Clear); Bacteria,Urine Many /hpf; Bilirubin,Urine Negative (Negative); Blood,Urine Negative (Negative); Color,Urine Yellow; Glucose,Urine (UA) Negative (Negative); Ketones,Urine 2+ (Negative); Leukocyte Esterase,Urine Negative (Negative); Mucus,Urine Rare /hpf; Nitrite,Urine Positive (Negative); PH, Urine 5.5 (5.0-8.0); Protein,Urine 2+ (Negative); RBC,Urine 1 /hpf (0-5); Specific Gravity,Urine 1.021 (1.001-1.035); Urobilinogen,Urine <2.0 mg/dL (<2.0); WBC,Urine 3 /hpf (0-5)
[2018-05-23] MEDS ORDERED: KETOROLAC 30 MG/ML 1 ML VIAL IVP STA (13:46)
[2018-05-23] MEDS ORDERED: cefTRIAXone IN SWFI 1,000 MG/10 ML SYRINGE IVP STA (13:48)
[2018-05-23 14:23] VITALS: RESP 16
--- NOTE | 2018-05-23 14:35 | CT ---
EXAMINATION TYPE: CT abdomen pelvis w con DATE OF EXAM: 05/23/2018 COMPARISON: 05/04/2017 INDICATION: Nausea and vomiting DLP: 324.8 mGycm, Automated exposure control for dose reduction was used. CONTRAST: 80 mL of Isovue 300. Study performed without Oral Contrast TECHNIQUE: Axial images were obtained from above the diaphragm to the pubic rami in the axial plane a t 5 mm thick sections. Reconstructed images are reviewed on the computer in the coronal plane. FINDINGS: Limited CT sections are obtained the lung bases. The lung bases are clear. Bilateral breast prosthe ses are present. CT ABDOMEN: Liver: Normal Spleen: Normal Pancreas: Atrophic Adrenal glands: The adrenal glands are normal. Gallbladder: Surgically absent Kidneys: No masses are evident. No hydronephrosis is present. 0.6 cm cortical renal cyst is present on the posterior inferior right kidney. Tiny exophytic cortical renal cysts likely present on the la teral left mid kidney. Additional cysts in the anterior right mid kidney measuring 1.0 cm. 0.4 cm ca lcification which appears to be nonobstructing as in the mid anterior left kidney. Aorta: Vascular calcification is within the aorta. Inferior vena cava: Normal. CT PELVIS: Multiple fluid-filled dilated small bowel loops are evident within the left upper abdomen. Decompress ed colon is present. An anastomosis is identified in the mid pelvis. Multiple diverticuli are in the region of the sigmoid colon. The zone of transition is not clearly identified. Partial small bowel ob struction could be considered. Ileus would be within the differential findings appear somewhat chroni c from comparison. Study is performed without oral contrast limiting the evaluation. Appendix: Not clearly identified, but may be the appendix is normal. Adjacent inflammatory changes ar e not identified. No dilated tubular structures in the right lower quadrant. No free fluid is within the pelvis. Urinary bladder: Normal. Genitourinary structures: Uterus and ovaries appear within normal limits. Osseous structures: No suspicious lytic or sclerotic lesions. IMPRESSIONS: 1. Chronic appearing changes within the bowel including prior surgery with anastomosis, prominent fl uid-filled small bowel loops in the left upper quadrant and decompressed colon with diverticulosis wi thout acute diverticulitis. Findings are similar to the April 2017 examination. Ileus is favored wit hin the differential. Low-grade partial small bowel obstruction could be considered within the differ ential.
[2018-05-23] MEDS ORDERED: ONDANSETRON 4 MG ODT STARTER PACK 2 TAB BTL PO STA (14:50)
[2018-05-23] MEDS ORDERED: ACET/COD 300 MG/30 MG STARTER PACK 6 TAB BTL PO STA (15:07)
[2018-05-23 15:13] VITALS: BP 150/70; PULSE 95
== END 2018-05-23 15:05 | disposition home or self-care (01) ==
LOC: EC 11:06
DX: N39.0 Urinary tract infection, site not specified (principal); R11.2 Nausea with vomiting, unspecified; K56.7 Ileus, unspecified; R19.7 Diarrhea, unspecified; Z87.891 Personal history of nicotine dependence; I10 Essential (primary) hypertension; Z79.891 Long term (current) use of opiate analgesic; Z79.899 Other long term (current) drug therapy; Z85.3 Personal history of malignant neoplasm of breast; Z92.3 Personal history of irradiation; Z90.13 Acquired absence of bilateral breasts and nipples; Z90.49 Acquired absence of other specified parts of digestive tract
CPT/HCPCS: 99285; 96374; 96375 ×3; 96361; 36415; 93005; 80053; 82150; 83605; 83690; 83735; 84484; 85025; 81001; 87040; 71046; 74018; 74177; J2270; J2405; J0696; J1885; S0119; Q9967

== ENCOUNTER 2019-02-28 11:59 | Inpatient (IN) | payer MEDICARE, OTHER ==
[2019-02-28] MEDS ORDERED: IPRATROPIUM-ALBUTEROL 3 ML NEB INHALATION STA (12:18)
[2019-02-28] MEDS ORDERED: SODIUM CHLORIDE 0.9% 1,000 ML IV STA (12:18)
--- NOTE | 2019-02-28 12:22 | ED ---
SOB HPI - General Source: RN notes reviewed, old records reviewed <aMry Galaviz - Last Filed: 02/28/19 15:09> <Saw Hampton - Last Filed: 02/28/19 16:17> - General Chief Complaint: Shortness of Breath Stated Complaint: TIFFANY Time Seen by Provider: 02/28/19 12:08 - History of Present Illness Initial Comments: Patient is a 83-year-old female presents emergency room today with progressive shortness of breath for the past 10 days. Patient has a history of atrial fibrillation, cancer, diabetes and hyperlipidemia. She denies any previous cardiac stenting. She does complain of some chest pressure. She reportedly had an episode of diaphoresis, and severe dyspnea on exertion yesterday. She did not want to come to the hospital yesterday but felt worse they decided she needed to be evaluated. Patient has had no known fevers or chills. She reports that her cough has been nonproductive. She denies any lower extremity swelling. Patient denies any changes in urination or bowel habits. Patient does report a history of chronic right side pain, most likely related to postherpetic neuralgia. She's been having these symptoms for 3-4 years. She has a history of breast cancer, currently in remission. She states that her oncologist was Dr. Jorge. (Mary Galaviz) - Related Data Home Medications Medication Instructions Recorded Confirmed Metoprolol Tartrate [Lopressor] 100 mg PO BID 12/24/15 02/28/19 Acetaminophen-Codeine 300-30mg 2 tab PO QID 02/28/19 02/28/19 [Tylenol w/codeine #3] Aspirin [[place] Aspirin EC] 81 mg PO DAILY 02/28/19 02/28/19 Dicyclomine [Bentyl] 10 mg PO TID 02/28/19 02/28/19 Mirtazapine [Remeron] 15 mg PO HS 02/28/19 02/28/19 Previous Rx's Medication Instructions Recorded Ondansetron Odt [Zofran Odt] 4 mg PO Q8HR PRN #14 tab 05/23/18 Allergies Allergy/AdvReac Type Severity Reaction Status Date / Time No Known Allergies Allergy Verified 05/14/17 14:18 Review of Systems ROS Other: All systems not noted in ROS Statement are negative. <Mary Galaviz - Last Filed: 02/28/19 15:09> ROS Other: All systems not noted in ROS Statement are negative. <Saw Hampton - Last Filed: 02/28/19 16:17> ROS Statement: Those systems with pertinent positive or pertinent negative responses have been documented in the HPI. Past Medical History Past Medical History: Atrial Fibrillation, Cancer, Diabetes Mellitus, Hyperlipidemia, Hypertension Additional Past Medical History / Comment(s): SHINGLES, RIGHT SIDE ABD. BREAST CANCER 1998 OR, Reoccurence 2009-with 35 radiation treatments. NEW TUMOR FOUND THIS MARCH 2016, APPT WITH DR. MORE. OCC INCONT OF URINE (DEPENDS). "TACHYCARDIA". BOWEL OBSTRUCTION. History of Any Multi-Drug Resistant Organisms: None Reported Past Surgical History: Appendectomy, Bowel Resection, Breast Surgery, Cholecystectomy Additional Past Surgical History / Comment(s): 03/25/16 tumor left chest area (positive). 12/26/15 Bowel resection. 1998, Bilateral mastectomy. JAMES CATARACTS. Past Anesthesia/Blood Transfusion Reactions: No Reported Reaction Past Psychological History: No Psychological Hx Reported Smoking Status: Former smoker Past Alcohol Use History: None Reported Past Drug Use History: None Reported - Past Family History Father Family Medical History: Myocardial Infarction ([place]) Mother Family Medical History: Cancer Additional Family Medical History / Comment(s): BREAST CANCER <Mary Galaviz - Last Filed: 02/28/19 15:09> General Exam General appearance: alert, in no apparent distress Head exam: Present: atraumatic, normocephalic, normal inspection Eye exam: Present: normal appearance, PERRL, EOMI. Absent: scleral icterus, conjunctival injection, periorbital swelling ENT exam: Present: normal exam Neck exam: Present: normal inspection. Absent: tenderness, meningismus, lymphadenopathy Respiratory exam: Present: decreased breath sounds (diminished Right lung sounds). Absent: normal lung sounds bilaterally, respiratory distress, wheezes, rales, rhonchi, stridor Cardiovascular Exam: Present: regular rate, normal rhythm, normal heart sounds. Absent: systolic murmur, diastolic murmur, rubs, gallop, clicks GI/Abdominal exam: Present: soft, normal bowel sounds. Absent: distended, tenderness, guarding, rebound, rigid Extremities exam: Present: normal inspection, full ROM, normal capillary refill. Absent: tenderness, pedal edema, joint swelling, calf tenderness Back exam: Present: normal inspection Neurological exam: Present: alert, oriented X3, CN II-XII intact Psychiatric exam: Present: normal affect, normal mood Skin exam: Present: warm, dry, intact, normal color. Absent: rash <Mary Galaviz - Last Filed: 02/28/19 15:09> - General Exam Comments Initial Comments: 83-year-old female. Alert and oriented. No distress. (Mary Galaviz) Course <Saw Hampton - Last Filed: 02/28/19 16:17> Vital Signs 02/28/19 02/28/19 02/28/19 12:13 13:04 13:13 Temperature 98.6 F Pulse Rate 126 H 117 H 112 H Respiratory 22 Rate Blood Pressure 126/59 O2 Sat by Pulse 97 Oximetry 02/28/19 02/28/19 02/28/19 13:25 14:30 15:00 Temperature Pulse Rate 123 H 116 H 124 H Respiratory 20 22 20 Rate Blood Pressure 122/61 133/86 145/71 O2 Sat by Pulse 95 98 97 Oximetry 02/28/19 02/28/19 02/28/19 15:30 15:50 16:00 Temperature Pulse Rate 120 H 120 H Respiratory 20 18 18 Rate Blood Pressure 132/66 132/66 132/66 O2 Sat by Pulse 97 97 96 Oximetry - Reevaluation(s) Reevaluation #1: 02/28/19 16:16 PA supervision: I personally a [id number] evaluation the patient did discuss findings with her and family members patient does them straight evidence of a right pleural effusion the concern is for metastatic disease she has had breast cancer on 3 different medications in both breasts. Did discuss case with her and her family as well as with Dr. Pittman who did come the emergency department see the patient. (Saw Hampton) Medical Decision Making - Lab Data Result diagrams: 02/28/19 12:15 02/28/19 12:15 - Radiology Data Radiology results: report reviewed <Mary Galaviz - Last Filed: 02/28/19 15:09> - Lab Data Result diagrams: 02/28/19 12:15 02/28/19 12:15 <Saw Hampton - Last Filed: 02/28/19 16:17> - Medical Decision Making Patient is an 83-year-old female with a history of breast cancer in remission. She presents emergency room today with progressive dyspnea for the past 10 days. Patient arrives to emergency department tachycardic, diminished lung sounds over the right lower lung field. Patient had IV established and blood work completed. Patient had an elevated d-dimer. Computed tomography scan of the c hest is completed. His evidence of significant right-sided pleural effusion concerns for metastatic disease. Patient is a former smoker and does have history of COPD. Patient's blood work was otherwise reviewed and unremarkable. Troponin is negative. BMP was within normal limits. Patient will be admitted this time for dyspnea, right-sided pleural effusion, and lung masses. (Mary Stringer) - Lab Data Lab Results 02/28/19 02/28/19 02/28/19 Range/Units 12:15 12:15 12:15 WBC 10.3 (3.8-10.6) k/uL RBC 3.87 (3.80-5.40) m/uL Hgb 11.0 L (11.4-16.0) gm/dL Hct 35.2 (34.0-46.0) % MCV 91.1 (80.0-100.0) fL MCH 28.3 (25.0-35.0) pg MCHC 31.1 (31.0-37.0) g/dL RDW 17.2 H (11.5-15.5) % Plt Count 379 (150-450) k/uL Neutrophils % 85 % Lymphocytes % 9 % Monocytes % 3 % Eosinophils % 1 % Basophils % 1 % Neutrophils # 8.8 H (1.3-7.7) k/uL Lymphocytes # 1.0 (1.0-4.8) k/uL Monocytes # 0.3 (0-1.0) k/uL Eosinophils # 0.1 (0-0.7) k/uL Basophils # 0.1 (0-0.2) k/uL Hypochromasia Slight Anisocytosis Slight PT 10.5 (9.0-12.0) sec INR 1.0 (<1.2) APTT 24.3 (22.0-30.0) sec D-Dimer 1.40 H (<0.60) mg/L FEU Sodium 142 (137-145) mmol/L Potassium 4.2 (3.5-5.1) mmol/L Chloride 108 H (98-107) mmol/L Carbon Dioxide 19 L (22-30) mmol/L Anion Gap 15 mmol/L BUN 41 H (7-17) mg/dL Creatinine 1.02 (0.52-1.04) mg/dL Est GFR (CKD-EPI)AfAm 60 (>60 ml/min/1.73 sqM) Est GFR (CKD-EPI)NonAf 52 (>60 ml/min/1.73 sqM) Glucose 166 H (74-99) mg/dL Calcium 9.0 (8.4-10.2) mg/dL Magnesium 2.1 (1.6-2.3) mg/dL Total Bilirubin 0.3 (0.2-1.3) mg/dL AST 54 H (14-36) U/L ALT 22 (9-52) U/L Alkaline Phosphatase 117 (38-126) U/L Troponin I (0.000-0.034) ng/mL NT-Pro-B Natriuret Pep pg/mL Total Protein 7.0 (6.3-8.2) g/dL Albumin 3.8 (3.5-5.0) g/dL Urine Color Urine Appearance (Clear) Urine pH (5.0-8.0) Ur Specific [place] (1.001-1.035) Urine Protein (Negative) Urine Glucose (UA) (Negative) Urine Ketones (Negative) Urine Blood (Negative) Urine Nitrite (Negative) Urine Bilirubin (Negative) Urine Urobilinogen (<2.0) mg/dL Ur Leukocyte Esterase (Negative) Urine RBC (0-5) /hpf Urine WBC (0-5) /hpf Ur Squamous Epith Cells (0-4) /hpf 02/28/19 02/28/19 02/28/19 Range/Units 12:15 12:15 14:15 WBC (3.8-10.6) k/uL RBC (3.80-5.40) m/uL Hgb (11.4-16.0) gm/dL Hct (34.0-46.0) % MCV (80.0-100.0) fL MCH (25.0-35.0) pg MCHC (31.0-37.0) g/dL RDW (11.5-15.5) % Plt Count (150-450) k/uL Neutrophils % % Lymphocytes % % Monocytes % % Eosinophils % % Basophils % % Neutrophils # (1.3-7.7) k/uL Lymphocytes # (1.0-4.8) k/uL Monocytes # (0-1.0) k/uL Eosinophils # (0-0.7) k/uL Basophils # (0-0.2) k/uL Hypochromasia Anisocytosis PT (9.0-12.0) sec INR (<1.2) APTT (22.0-30.0) sec D-Dimer (<0.60) mg/L FEU Sodium (137-145) mmol/L Potassium (3.5-5.1) mmol/L Chloride (98-107) mmol/L Carbon Dioxide (22-30) mmol/L Anion Gap mmol/L BUN (7-17) mg/dL Creatinine (0.52-1.04) mg/dL Est GFR (CKD-EPI)AfAm (>60 ml/min/1.73 sqM) Est GFR (CKD-EPI)NonAf (>60 ml/min/1.73 sqM) Glucose (74-99) mg/dL Calcium (8.4-10.2) mg/dL Magnesium (1.6-2.3) mg/dL Total Bilirubin (0.2-1.3) mg/dL AST (14-36) U/L ALT (9-52) U/L Alkaline Phosphatase (38-126) U/L Troponin I <0.012 (0.000-0.034) ng/mL NT-Pro-B Natriuret Pep 912 pg/mL Total Protein (6.3-8.2) g/dL Albumin (3.5-5.0) g/dL Urine Color Yellow Urine Appearance Cloudy H (Clear) Urine pH 5.0 (5.0-8.0) Ur Specific [place] 1.032 (1.001-1.035) Urine Protein 1+ H (Negative) Urine Glucose (UA) Negative (Negative) Urine Ketones 1+ H (Negative) Urine Blood Negative (Negative) Urine Nitrite Negative (Negative) Urine Bilirubin Negative (Negative) Urine Urobilinogen <2.0 (<2.0) mg/dL Ur Leukocyte Esterase Large H (Negative) Urine RBC 2 (0-5) /hpf Urine WBC 9 H (0-5) /hpf Ur Squamous Epith Cells 2 (0-4) /hpf 02/28/19 12:53 EKG shows sinus tachycardia, possible left atrial enlargement. Wear on EKG noted. Ventricular rate 119 bpm period. Was 162 ms. QRS ration 76 most seconds. Did QTC 318/447 ms. (Mary Galaviz) - Radiology Data Chest x-ray shows COPD. Increasing opacity within the right lung. A combination of pleural fluid and air space disease. No CT evidence for pulmonary embolism. CT findings consistent with diffuse metastatic disease associated with [id number] right-sided pleural effusion as detailed. Moderate right-sided pleural effusion with compressive atelectasis. There is several suspicious pleural based masses suspected for reference on the right anterior right midlung a 2.5 x 1.37 m hyperdense areas noted. There is several suspicious areas of mass or masslike consolidation in the anterior right hilar level. (Mary Galaviz) Disposition Is patient prescribed a controlled substance at d/c from ED?: No Time of Disposition: 15:12 <Mary Galaviz - Last Filed: 02/28/19 15:09> <Saw Hampton - Last Filed: 02/28/19 16:17> Clinical Impression: Pleural effusion, right, Mass of right lung, Dyspnea, Tachycardia Disposition: ADMITTED IP TO THIS HOSP Condition: Stable Referrals: Milan Chu MD [Primary Care Provider] - 1-2 days
[2019-02-28 13:32] LABS: Anisocytosis Slight; Basophils # (A) 0.1 k/uL (0-0.2); Basophils % (A) 1 %; Eosinophils # (A) 0.1 k/uL (0-0.7); Eosinophils % (A) 1 %; HCT 35.2 % (34.0-46.0); Hypochromasia Slight; Lymphocytes % (A) 9 %; MCH 28.3 pg (25.0-35.0); MCHC 31.1 g/dL (31.0-37.0); MCV 91.1 fL (80.0-100.0); Mean Platelet Volume 6.5; Monocytes # (A) 0.3 k/uL (0-1.0); Monocytes % (A) 3 %; Neutrophils # (A) 8.8 k/uL (1.3-7.7); Neutrophils % (A) 85 %; Platelet Count 379 k/uL (150-450); RBC 3.87 m/uL (3.80-5.40); RDW 17.2 % (11.5-15.5); WBC 10.3 k/uL (3.8-10.6)
[2019-02-28 13:38] LABS: Albumin 3.8 g/dL (3.5-5.0); Magnesium 2.1 mg/dL (1.6-2.3); Potassium 4.2 mmol/L (3.5-5.1); Total Bilirubin 0.3 mg/dL (0.2-1.3)
[2019-02-28 13:46] LABS: Partial Thromboplastin Time 24.3 sec (22.0-30.0); Prothrombin Time 10.5 sec (9.0-12.0)
--- NOTE | 2019-02-28 13:47 | XR ---
EXAMINATION TYPE: XR chest 2V DATE OF EXAM: 02/28/2019 HISTORY: difficulty breathing. REFERENCE: Previous study of 05/23/2018. FINDINGS: There is been a previous left axillary dissection. Lung volumes are prominent. There has developed opacity at the right lung base. This is likely secondary to pleural fluid and air space disease. There is also some airspace disease in the right upper lobe. The left lung is clear. T he heart is not enlarged. IMPRESSION: 1. COPD. 2. INCREASING OPACITY WITHIN THE RIGHT LUNG, A COMBINATION OF PLEURAL FLUID AND AIRSPACE DISEASE.
[2019-02-28 13:50] LABS: D-Dimer 1.4 mg/L FEU (<0.60)
[2019-02-28] MEDS ORDERED: MORPHINE SULFATE 4 MG/ML SYRINGE IVP STA (13:59)
[2019-02-28] MEDS: SODIUM CHLORIDE 0.9% 1,000 ML IV SCH (14:26)
--- NOTE | 2019-02-28 14:34 | CT ---
EXAMINATION TYPE: CT chest angio for PE DATE OF EXAM: 02/28/2019 COMPARISON: CT chest February 19, 2016 HISTORY: Difficulty breathing CT DLP: 166 mGycm. Automated Exposure Control for Dose Reduction was Utilized. CONTRAST: CTA scan of the thorax is performed with IV Contrast, patient injected with 90 mL of Isovue 300, pulm onary embolism protocol. MIP Images are created on CT scanner and reviewed. FINDINGS: LUNGS: There is fairly moderate sized right pleural fluid collection with associated compressive atel ectasis. In addition there are several suspicious pleural-based mass is suspected for reference anter ior right midlung 2.5 x 1.3 cm hyperdense area is noted. There are several suspicious areas of mass o r masslike consolidation anterior right hilar level axial image 95. Suspicious lesion in the posterio r medial right pleural fluid measures 2.7 x 1.2 cm axial image 109. Left lung is clear. MEDIASTINUM: There is satisfactory enhancement of the pulmonary artery and its branches, there is no CT evidence for pulmonary embolism. There are suspicious right hilar lymph nodes as well as heteroge neous masses or confluent adenopathy subcarinal region measuring roughly 2.1 x 1.7 cm. This extends i nto the AP window and pericarinal level axial image 61 for reference. No cardiomegaly or pericardia l effusion is seen. Dense coronary artery calcification and/or stents are present. OTHER: Bilateral breast implants are redemonstrated. Suspicious rim-enhancing 2.5 x 1.7 cm posterior segment right hepatic lobe hypodense mass axial image 146. Cholecystectomy clips are present. Osseous structures are demineralized. Exaggerated curvature is present. Mild height loss T10 vertebra noted. Prominent Schmorl node involving right L2 vertebra superior endplate is present. IMPRESSION: 1. No CT evidence for acute pulmonary embolism. 2. CT findings consistent with diffuse metastatic disease with associated small to moderate size righ t pleural effusion as detailed above.
[2019-02-28 14:38] LABS: Appearance,Urine Cloudy (Clear); Bilirubin,Urine Negative (Negative); Blood,Urine Negative (Negative); Color,Urine Yellow; Glucose,Urine (UA) Negative (Negative); Ketones,Urine 1+ (Negative); Leukocyte Esterase,Urine Large (Negative); Nitrite,Urine Negative (Negative); Protein,Urine 1+ (Negative); RBC,Urine 2 /hpf (0-5); Specific Gravity,Urine 1.032 (1.001-1.035); Squamous Epithelial Cell,Urine 2 /hpf (0-4); Urobilinogen,Urine <2.0 mg/dL (<2.0); WBC,Urine 9 /hpf (0-5)
[2019-02-28] MEDS ORDERED: ONDANSETRON 4 MG/2 ML VIAL IVP PRN (15:12)
[2019-02-28] MEDS ORDERED: NALOXONE 0.4 MG/ML 1 ML VIAL IV PRN (15:12)
[2019-02-28] MEDS ORDERED: MORPHINE SULFATE 4 MG/ML SYRINGE IV PRN (15:12)
[2019-02-28] MEDS ORDERED: IBUPROFEN 400 MG TAB PO PRN (15:12)
[2019-02-28] MEDS ORDERED: ACETAMINOPHEN TAB 325 MG TAB PO PRN (15:12)
--- NOTE | 2019-02-28 16:44 | P.HPIM ---
History of Present Illness H&P Date: 02/28/19 Chief Complaint: Difficulty breathing Patient is a 83-year-old female with a past medical history of atrial fibrillation, cancer, diet-controlled diabetes and hyperlipidemia. breast cancer that is had episodes of remission and recurrence that presents emergency room today with progressive shortness of breath for the past 10 days. She does complain of some chest pressure that is worse with deep breaths. She reportedly had an episode of diaphoresis, and severe dyspnea on exertion yesterday. She did not want to come to the hospital yesterday but felt worse they decided she needed to be evaluated. Patient has had no known fevers or chills. She reports that her cough has been nonproductive. She denies any lower extremity swelling. Patient denies any changes in urination or bowel habits. Patient does report a history of chronic right side pain, most likely related to postherpetic neuralgia. She's been having these symptoms for 3-4 years and recently has had poor pain control. She has a history of breast cancer, currently in remission and is followed by Dr. Angulo in oncology clinic. In the ER the patient had a comprehensive workup, d-dimer was elevated subsequent CTA of the chest was negative for any acute PE, but did show moderate right sided Pleural effusion with compressive atelectasis and findings consistent with diffuse metastatic disease. EKG consistent with sinus tachycardia Review of Systems Pertinent positives per HPI all the review of systems otherwise negative Past Medical History Past Medical History: Atrial Fibrillation, Cancer, Diabetes Mellitus, Hype rlipidemia, Hypertension Additional Past Medical History / Comment(s): SHINGLES, RIGHT SIDE ABD. BREAST CANCER 1998 OR, Reoccurence 2009-with 35 radiation treatments. NEW TUMOR FOUND THIS MARCH 2016, APPT WITH DR. MORE. OCC INCONT OF URINE (DEPENDS). "TACHYCARDIA". BOWEL OBSTRUCTION. History of Any Multi-Drug Resistant Organisms: None Reported Past Surgical History: Appendectomy, Bowel Resection, Breast Surgery, Cholec ystectomy Additional Past Surgical History / Comment(s): 03/25/16 tumor left chest area (positive). 12/26/15 Bowel resection. 1998, Bilateral mastectomy. JAMES CATARACTS. Past Anesthesia/Blood Transfusion Reactions: No Reported Reaction Past Psychological History: No Psychological Hx Reported Smoking Status: Former smoker Past Alcohol Use History: None Reported Past Drug Use History: None Reported - Past Family History Father Family Medical History: Myocardial Infarction ([place]) Mother Family Medical History: Cancer Additional Family Medical History / Comment(s): BREAST CANCER Medications and Allergies Home Medications Medication Instructions Recorded Confirmed Type Metoprolol Tartrate [Lopressor] 100 mg PO BID 12/24/15 02/28/19 History Ondansetron Odt [Zofran Odt] 4 mg PO Q8HR PRN #14 tab 05/23/18 02/28/19 Rx Acetaminophen-Codeine 300-30mg 2 tab PO QID 02/28/19 02/28/19 History [Tylenol w/codeine #3] Aspirin [[place] Aspirin EC] 81 mg PO DAILY 02/28/19 02/28/19 History Dicyclomine [Bentyl] 10 mg PO TID 02/28/19 02/28/19 History Mirtazapine [Remeron] 15 mg PO HS 02/28/19 02/28/19 History Allergies Allergy/AdvReac Type Severity Reaction Status Date / Time No Known Allergies Allergy Verified 05/14/17 14:18 Physical Exam Vitals: Vital Signs Temp Pulse Resp BP Pulse Ox 02/28/19 15:50 120 H 18 132/66 97 02/28/19 15:30 20 132/66 97 02/28/19 15:00 124 H 20 145/71 97 02/28/19 14:30 116 H 22 133/86 98 02/28/19 13:25 123 H 20 122/61 95 02/28/19 13:13 112 H 02/28/19 13:04 117 H 02/28/19 12:13 98.6 F 126 H 22 126/59 97 Intake and Output 02/28/19 02/28/19 02/28/19 06:59 14:59 22:59 Other: Weight 42.184 kg Constitutional: No acute distress, conversant, pleasant Eyes: Anicteric sclerae, moist conjunctiva, no lid-lag, PERRLA ENMT: NC/AT,Oropharynx clear, no erythema, exudates Neck:Supple, FROM, no masses, or JVD, No carotid bruits; No thyromegaly Lungs: Diminished in the bases, poor right lower lobe aeration, increased tactile fremitus and dullness to percussion in the right lower field Cardiovascular: Heart regular in rate and rhythm, No murmurs, gallops, or rubs no peripheral edema Abdominal: Soft Nontender, nom distended, no guarding, no rebound or rigidity, Normoactive bowel sounds No hepatomegaly, No splenomegaly, No palpable mass No abdominal wall hernia noted Skin: Normal temperature, tone, texture, turgor, No induration No subcutaneous nodules, No rash, lesions, No ulcers Extremities:No digital cyanosis No clubbing, Pedal pulses intact and symmetrical Radial pulses intact and symmetrical Normal gait and station, No calf tenderness Psychiatric: Alert and oriented to person, place and time, Appropriate affect Intact judgement Neuro: Muscles Strength 5/5 in all 4 extremities, Sensation to light touch grossly present throughout, Cranial nerves II-XII grossly intact. No focal sensory deficits Results CBC & Chem 7: 02/28/19 12:15 02/28/19 12:15 Labs: Abnormal Lab Results - Last 24 Hours (Table) 02/28/19 02/28/19 02/28/19 Range/Units 12:15 12:15 12:15 Hgb 11.0 L (11.4-16.0) gm/dL RDW 17.2 H (11.5-15.5) % Neutrophils # 8.8 H (1.3-7.7) k/uL D-Dimer 1.40 H (<0.60) mg/L FEU Chloride 108 H (98-107) mmol/L Carbon Dioxide 19 L (22-30) mmol/L BUN 41 H (7-17) mg/dL Glucose 166 H (74-99) mg/dL AST 54 H (14-36) U/L Urine Appearance (Clear) Urine Protein (Negative) Urine Ketones (Negative) Ur Leukocyte Esterase (Negative) Urine WBC (0-5) /hpf 02/28/19 Range/Units 14:15 Hgb (11.4-16.0) gm/dL RDW (11.5-15.5) % Neutrophils # (1.3-7.7) k/uL D-Dimer (<0.60) mg/L FEU Chloride (98-107) mmol/L Carbon Dioxide (22-30) mmol/L BUN (7-17) mg/dL Glucose (74-99) mg/dL AST (14-36) U/L Urine Appearance Cloudy H (Clear) Urine Protein 1+ H (Negative) Urine Ketones 1+ H (Negative) Ur Leukocyte Esterase Large H (Negative) Urine WBC 9 H (0-5) /hpf Assessment and Plan (1) Dyspnea Current Visit: Yes Status: Acute Code(s): R06.00 - DYSPNEA, UNSPECIFIED SNOMED Code(s): 456465165 (2) Pleural effusion, right Current Visit: Yes Status: Acute Code(s): J90 - PLEURAL EFFUSION, NOT ELSEWHERE CLASSIFIED SNOMED Code(s): 48598685 (3) Appetite loss Current Visit: No Status: Acute Code(s): R63.0 - ANOREXIA SNOMED Code(s): 79801752 (4) Diabetes Current Visit: No Status: Acute Code(s): E11.9 - TYPE 2 DIABETES MELLITUS WITHOUT COMPLICATIONS SNOMED Code(s): 25203657 Plan: The patient is admitted with progressive worsening dyspnea with moderate right sided pleural effusion with compressive atelectasis with concern for recurrence of breast cancer with metastasis to lung, patient is continued on supplemental oxygen, with consults pending to oncology Dr. Angulo and pulmonary Dr. Reyes for possible thoracentesis. Continue to follow her clinical course CODE STATUS: DNR/DNI Surrogate decision-maker: Daughter Prophylaxis: SCDs Anticipated discharge 1-2 days
[2019-02-28] MEDS: GABAPENTIN 100 MG CAP PO SCH (20:27)
[2019-02-28] MEDS: METOPROLOL TARTRATE 50 MG TAB PO SCH (20:27)
[2019-02-28] MEDS: DICYCLOMINE 10 MG CAP PO SCH (20:27)
[2019-02-28] MEDS: Acetaminophen-Codeine 300-30mg TAB PO PRN (20:27)
[2019-02-28] MEDS: MIRTAZAPINE 15 MG TAB PO SCH (20:27)
[2019-03-01] MEDS: Acetaminophen-Codeine 300-30mg TAB PO PRN (03:57)
[2019-03-01] MEDS: METOPROLOL TARTRATE 50 MG TAB PO SCH ×2 (07:34→20:10)
[2019-03-01] MEDS: DICYCLOMINE 10 MG CAP PO SCH ×3 (07:34→20:10)
[2019-03-01] MEDS: GABAPENTIN 100 MG CAP PO SCH ×3 (07:34→20:11)
[2019-03-01] MEDS: SODIUM CHLORIDE 0.9% 1,000 ML IV SCH ×3 (07:35→20:11)
[2019-03-01] MEDS: PANTOPRAZOLE 40 MG/10 ML VIAL IV SCH (09:15)
--- NOTE | 2019-03-01 12:27 | P.PN ---
Subjective Progress Note Date: 03/01/19 Principal diagnosis: shortness of breath, pleural effusion Patient was seen and examined. No acute events overnight. Patient reports profound fatigue but has no other complaints. She reports significant improvement in her breathing since admission. Family at bedside and discussed with Dr. Estrella, patient likely with stage 4 metastatic breast cancer. P states that she does not want to undergo any further chemotherapy or radiation treatments, would like to live rest of her life. She reiterates DNR/DNI. Objective - Vital Signs Vital signs: Vital Signs Temp 98.3 F 03/01/19 05:31 Pulse 98 03/01/19 05:31 Resp 17 03/01/19 05:31 BP 150/77 03/01/19 05:31 Pulse Ox 97 03/01/19 05:31 Intake & Output 02/28/19 03/01/19 03/01/19 18:59 06:59 18:59 Intake Total 45 200 Balance 45 200 Weight 42.184 kg Intake: Oral 45 200 Other: Voiding Method Bedside Commode Bedside Commode # Voids 1 - Exam General: [non toxic], [no distress], [appears at stated age] Derm: [warm], [dry] Head: [atraumatic], [normocephalic], [symmetric] Eyes: [EOMI], [no lid lag], [anicteric sclera] Mouth: [no lip lesion], [mucus membranes moist] Cardiovascular: [S1S2 reg], [no murmur], [positive DP pulse bilateral] Lungs: [Decreased breath sounds on the right side with good air entry], [no rhonchi, no rales] , [no accessory muscle use] Abdominal: [soft], [ nontender to palpation], [no guarding], [no appreciable organomegaly] Ext: [no gross muscle atrophy], [no edema], [no contractures] Neuro: [no focal neuro deficits] Psych: [Alert], [oriented], [appropriate affect] - Labs CBC & Chem 7: 02/28/19 12:15 02/28/19 12:15 Labs: Abnormal Lab Results - Last 24 Hours (Table) 02/28/19 02/28/19 02/28/19 Range/Units 12:15 12:15 12:15 Hgb 11.0 L (11.4-16.0) gm/dL RDW 17.2 H (11.5-15.5) % Neutrophils # 8.8 H (1.3-7.7) k/uL D-Dimer 1.40 H (<0.60) mg/L FEU Chloride 108 H (98-107) mmol/L Carbon Dioxide 19 L (22-30) mmol/L BUN 41 H (7-17) mg/dL Glucose 166 H (74-99) mg/dL AST 54 H (14-36) U/L Urine Appearance (Clear) Urine Protein (Negative) Urine Ketones (Negative) Ur Leukocyte Esterase (Negative) Urine WBC (0-5) /hpf 02/28/19 Range/Units 14:15 Hgb (11.4-16.0) gm/dL RDW (11.5-15.5) % Neutrophils # (1.3-7.7) k/uL D-Dimer (<0.60) mg/L FEU Chloride (98-107) mmol/L Carbon Dioxide (22-30) mmol/L BUN (7-17) mg/dL Glucose (74-99) mg/dL AST (14-36) U/L Urine Appearance Cloudy H (Clear) Urine Protein 1+ H (Negative) Urine Ketones 1+ H (Negative) Ur Leukocyte Esterase Large H (Negative) Urine WBC 9 H (0-5) /hpf Assessment and Plan Assessment: Assessment and Plan Right pleural effusion, likely malignant secondary to stage IV metastatic breast cancer Right sided abdominal pain Anorexia Atrial fibrillation Diabetes mellitus Hypertension Metastatic disease to the lung confirmed on CT of the chest with right-sided pleural effusion given history of breast cancer. D-dimer elevated, CTA chest excluded PE. Plans: O2 per NC to maintain O2 saturation greater than 92%. Oncology consulted, follow CA antigen markers, CT abdomen and pelvis, bone scan ordered. Pulmonology consulted, ultrasound of the chest ordered to evaluate pleural effusion. Given likely diagnosis of stage 4 metastatic breast CA, will consult Hospice as per family. History of herpetic neuralgia. Troponin < 0.012, EKG showing sinus tachycardia, ACS ruled out. Plans: Tylenol or T3 for pain management. Continue gabapentin. Discontinue ibuprofen and morphine. Will add lidocaine patch. BMI 16.5. Plans: Decrease IVF from 100 cc to 50 cc/hour. Add Ensure. Follow dietitian consult. Continue Mirtazapine, hopefully to help with appetite. Stable. Plans: Continue metoprolol. No anticoagulation given DNR/DNI status. [id number]-tu-[id number] glucose 166. Plans: Regular Accu-Cheks. No insulin due to poor appetite. BP 150/77. Plans: Continue metoprolol. Monitor vitals, adjust medications as necessary. Patient admitted for shortness of breath. Positive right-sided pleural effusion, likely malignant secondary to stage IV metastatic breast cancer. Family interested in pursuing hospice care. Pulmonology and oncology on board for possible thoracocentesis and further workup of mass seen on CTA chest.
[2019-03-01 12:37] LABS: African American GFR (CKD) >90 (>60 ml/min/1.73 sqM); Anion Gap 8 mmol/L; Blood Urea Nitrogen 22 mg/dL (7-17); Calcium 8.3 mg/dL (8.4-10.2); Carbon Dioxide 19 mmol/L (22-30); Chloride 115 mmol/L (98-107); Glucose 117 mg/dL (74-99); Potassium 4.5 mmol/L (3.5-5.1); Sodium 142 mmol/L (137-145)
[2019-03-01 12:50] LABS: Anisocytosis Slight; Basophils # (A) 0.1 k/uL (0-0.2); Basophils % (A) 1 %; Eosinophils # (A) 0.4 k/uL (0-0.7); Eosinophils % (A) 6 %; HCT 36.4 % (34.0-46.0); HGB 11.1 gm/dL (11.4-16.0); Hypochromasia Moderate; Lymphocytes # (A) 1.3 k/uL (1.0-4.8); Lymphocytes % (A) 17 %; MCH 28.5 pg (25.0-35.0); MCHC 30.7 g/dL (31.0-37.0); MCV 92.8 fL (80.0-100.0); Mean Platelet Volume 6.3; Monocytes # (A) 0.5 k/uL (0-1.0); Monocytes % (A) 6 %; Neutrophils # (A) 5.3 k/uL (1.3-7.7); Neutrophils % (A) 69 %; Platelet Count 344 k/uL (150-450); RBC 3.92 m/uL (3.80-5.40); WBC 7.6 k/uL (3.8-10.6)
[2019-03-01] MEDS: LIDOCAINE 5% PATCH TOPICAL SCH (12:51)
[2019-03-01] MEDS: IOPAMIDOL-300 CONTRAST 30 ML VIAL (ORAL USE) PO PRN ×2 (12:51→13:58)
--- NOTE | 2019-03-01 14:45 | US ---
EXAMINATION TYPE: US chest DATE OF EXAM: 03/01/2019 COMPARISON: NONE CLINICAL HISTORY: Right pleural effusion. Right pleural effusion TECHNIQUE: Targeted ultrasound of the posterior lower right hemithorax EXAM MEASUREMENTS: Right Pleural Effusion pocket size: 13.6 cm Right skin surface to fluid distance: 1.7 cm Lung seen within mid portion of pocket at a depth of 5.2cm Right side MARKED for possible thoracentesis outside the dept. Pulmonologists are able to review the images in the patient?s EMR. IMPRESSIONS: Right pleural effusion
[2019-03-01] MEDS: ALBUTEROL NEBULIZED 2.5 MG/3 ML INHALATION PRN ×2 (14:55→19:34)
--- NOTE | 2019-03-01 15:11 | P.CONS ---
History of Present Illness - Reason for Consult Consult date: 03/01/19 Hx breast cancer, abnormal findings on CT Requesting physician: Jose Manuel Pittman - Chief Complaint chest pain, SOB - History of Present Illness Mrs. Bradshaw is a very pleasant female pt of Dr. Jorge who was initially diagnosed with bilateral breast cancer in [place] in 1998. Treated with bilateral mastectomies, she had 0.9cm invasive cancer in left breast (ER 90%,NM 20%), negative nodes and small focus (0.2cm) DCIS in right breast, had 5 cycles of CMF and 5 years of tamoxifen, completed in July 2004. She developed left chest wall recurrence, in [place], . Treated with surgery, it was 1.9cm invasive carcinoma, ER 90%/NM 70% and HER2/YUE negative, received adjuvant radiation to left chest wall, completed in September 2010. She started femara in 2009, moved to [place] in 2012. She noticed a left chest wall lesion medial to her implant in November 2015. December 2015 she had bowel obstruction from internal hernia, CT AP 12/25/15 revealed evidence of bowel obstruction, no metastatic disease, she required exploratory laparatomy. 01/26/16 she had a biopsy of the left chest wall lesion, positive for invasive ductal carcinoma, ER strongly positive,NM negative and HER2/YUE positive. Stopped femara in January 2016, 02/19/16 CT CAP was negative for metastatic disease. 03/25/16 she had complete excision of the left chest wall lesion, pathology rev ealed invasive ductal carcinoma, margins very close,ER+,NM weakly positive, HER2/YUE negative by FISH. She started aromasin in April 2016. She had shingles in December 2015 with postherpetic neuralgia. Last visit with Dr. Jorge was 11/22/16, she states she has taken no medications for her breast cancer for at least 2 years. She presents to hospital with c/o right chest pain/RUQ pain, persistent, worse with inspiration, some SOB with exertion, chest heaviness, progressive weakness, symptoms present for some time now, pt states "I'm in a daze", denies nausea, appetite is poor, no vomiting, abd pain, diarrhea, constipation, swelling. Review of Systems 14 point ROS is negative except as stated in HPI Past Medical History Past Medical History: Atrial Fibrillation, Cancer, Diabetes Mellitus, Hyperlipidemia, Hypertension Additional Past Medical History / Comment(s): SHINGLES, RIGHT SIDE ABD. BREAST CANCER 1998 OR, Reoccurence 2009-with 35 radiation treatments. NEW TUMOR FOUND THIS MARCH 2016, APPT WITH DR. MORE. OCC INCONT OF URINE (DEPENDS). "TACHYCARDIA". BOWEL OBSTRUCTION. History of Any Multi-Drug Resistant Organisms: None Reported Past Surgical History: Appendectomy, Bowel Resection, Breast Surgery, Cholecystectomy Additional Past Surgical History / Comment(s): 03/25/16 tumor left chest area (positive). 12/26/15 Bowel resection. 1998, Bilateral mastectomy. JAMES CATARACTS. Past Anesthesia/Blood Transfusion Reactions: No Reported Reaction Past Psychological History: No Psychological Hx Reported Smoking Status: Former smoker Past Alcohol Use History: None Reported Past Drug Use History: None Reported - Past Family History Father Family Medical History: Myocardial Infarction ([place]) Mother Family Medical History: Cancer Additional Family Medical History / Comment(s): BREAST CANCER Medications and Allergies Home Medications Medication Instructions Recorded Confirmed Type Metoprolol Tartrate [Lopressor] 100 mg PO BID 12/24/15 02/28/19 History Ondansetron Odt [Zofran Odt] 4 mg PO Q8HR PRN #14 tab 05/23/18 02/28/19 Rx Acetaminophen-Codeine 300-30mg 2 tab PO QID 02/28/19 02/28/19 History [Tylenol w/codeine #3] Aspirin [[place] Aspirin EC] 81 mg PO DAILY 02/28/19 02/28/19 History Dicyclomine [Bentyl] 10 mg PO TID 02/28/19 02/28/19 History Mirtazapine [Remeron] 15 mg PO HS 02/28/19 02/28/19 History Allergies Allergy/AdvReac Type Severity Reaction Status Date / Time No Known Allergies Allergy Verified 05/14/17 14:18 Physical Exam Vitals: Vital Signs Temp Pulse Pulse Resp BP BP Pulse Ox 03/01/19 05:31 98.3 F 98 17 150/77 97 02/28/19 21:00 98.1 F 109 H 22 164/70 95 02/28/19 20:00 109 H 02/28/19 16:20 121 H 18 125/61 97 02/28/19 16:00 120 H 18 132/66 96 02/28/19 15:50 120 H 18 132/66 97 02/28/19 15:30 20 132/66 97 02/28/19 15:00 124 H 20 145/71 97 02/28/19 14:30 116 H 22 133/86 98 02/28/19 13:25 123 H 20 122/61 95 02/28/19 13:13 112 H 02/28/19 13:04 117 H 02/28/19 12:13 98.6 F 126 H 22 126/59 97 Intake and Output 02/28/19 03/01/19 03/01/19 22:59 06:59 14:59 Intake Total 245 Balance 245 Intake: Oral 245 Other: Voiding Method Bedside Commode # Voids 1 - Constitutional General appearance: cooperative, no acute distress, thin - EENT Eyes: anicteric sclerae, EOMI ENT: hearing grossly normal, normal oropharynx - Neck 2cm lt axillary mass - Respiratory Respiratory: right: diminished, left: CTA - Cardiovascular Rhythm: regular Heart sounds: normal: S1, S2 leg Peripheral Edema: bilateral: None - Gastrointestinal General gastrointestinal: no absent bowel sounds, no decreased bowel sounds, no distended, no hepatomegaly, no hyperactive bowel sounds, normal bowel sounds, no organomegaly, no rigid, scaphoid, soft, no splenomegaly, no tenderness, no umbilical hernia, no ventral hernia - Neurologic Neurologic: CNII-XII intact - Musculoskeletal Musculoskeletal: generalized weakness - Psychiatric Psychiatric: A&O x's 3, appropriate affect, intact judgment & insight Results CBC & Chem 7: 03/01/19 12:10 03/01/19 12:10 Labs: Abnormal Lab Results - Last 24 Hours (Table) 02/28/19 02/28/19 02/28/19 Range/Units 12:15 12:15 12:15 Hgb 11.0 L (11.4-16.0) gm/dL RDW 17.2 H (11.5-15.5) % Neutrophils # 8.8 H (1.3-7.7) k/uL D-Dimer 1.40 H (<0.60) mg/L FEU Chloride 108 H (98-107) mmol/L Carbon Dioxide 19 L (22-30) mmol/L BUN 41 H (7-17) mg/dL Glucose 166 H (74-99) mg/dL AST 54 H (14-36) U/L Urine Appearance (Clear) Urine Protein (Negative) Urine Ketones (Negative) Ur Leukocyte Esterase (Negative) Urine WBC (0-5) /hpf 02/28/19 Range/Units 14:15 Hgb (11.4-16.0) gm/dL RDW (11.5-15.5) % Neutrophils # (1.3-7.7) k/uL D-Dimer (<0.60) mg/L FEU Chloride (98-107) mmol/L Carbon Dioxide (22-30) mmol/L BUN (7-17) mg/dL Glucose (74-99) mg/dL AST (14-36) U/L Urine Appearance Cloudy H (Clear) Urine Protein 1+ H (Negative) Urine Ketones 1+ H (Negative) Ur Leukocyte Esterase Large H (Negative) Urine WBC 9 H (0-5) /hpf Chest x-ray: report reviewed CT scan - chest: report reviewed Assessment and Plan (1) Breast cancer Narrative/Plan: History of, no treatment for over 2 years now. Last seen by Dr. Jorge about 1 year ago Current Visit: Yes Status: Chronic Priority: High Code(s): C50.919 - MALIGNANT NEOPLASM OF UNSP SITE OF UNSPECIFIED FEMALE BREAST SNOMED Code(s): 986860020 (2) Liver lesion Current Visit: Yes Status: Acute Priority: High Code(s): K76.9 - LIVER DISEASE, UNSPECIFIED SNOMED Code(s): 517916417 (3) Mediastinal lymphadenopathy Current Visit: Yes Status: Acute Priority: High Code(s): R59.0 - LOCALIZED ENLARGED LYMPH NODES SNOMED Code(s): 85936753 (4) Pleural effusion, right Narrative/Plan: Pending Pulm consult. Anticipate thoracentesis for palliative and diagnostic purposes. Current Visit: Yes Status: Acute Priority: High Code(s): J90 - PLEURAL EFFUSION, NOT ELSEWHERE CLASSIFIED SNOMED Code(s): 71714241 Plan: High suspicion for metastatic breast cancer with pt history. Work up ordered-CT AP and NM bone scan for re-staging, tumor markers. Pending evaluation by Pulmonary for SOB, pleural effusion. Anticipate throacentesis-palliative, diagnostic. Pleural fluid will be sent for cytology. Dr. Estrella discussed with pt and family at bedside that her presentation is most consistent with a malignant process. Whatever the primary, findings represent stage IV malignancy, due to the multiple organs involved. Pt and family are willing to proceed with with work up at this time. Dr. Caldwell: I have seen pt, performed H&P, developed impression and plan of care. Discussed with dictator, agree with documentation, documented as a scribe
[2019-03-01 15:40] VITALS: BMI 16.5
--- NOTE | 2019-03-01 16:07 | P.CNPUL ---
History of Present Illness Consult date: 03/01/19 Requesting physician: Jose Manuel Pittman Reason for consult: dyspnea, abnormal CXR/CT Chief complaint: Shortness of breath right-sided chest pain History of present illness: This is a very pleasant 83-year-old female patient who follows with Dr. Chu as her primary care physician. She has a history of diabetes mellitus, hyperlipidemia, hypertension, atrial fibrillation, shingles. Chest has a hist ory of recurrent breast cancer initially in 1998 and was status post bilateral mastectomy. A recurrence in 2009 with 35 subsequent radiation treatments. New tumor on the left chest was found in March 2016 and she was treated with oral chemotherapy through 2016 and then quit taking them on her own. She presented here to the emergency room yesterday with a 10 day history of progressive shortness of breath and increasing right-sided chest discomfort. Chest x-ray showed evidence of COPD and increasing opacity within the right lung and a combination of pleural fluid and airspace disease. CT angiogram reveals no acute pulmonary embolism. There was findings consistent with diffuse metastatic disease with associated small to moderate-sized right pleural effusion, a tubal a 2.5 x 1.3 cm hyperdense area in the anterior right midlung and several suspicious areas of mass or masslike consolidation anterior right hilar level. Suspicious lesion in the posterior medial right pleural fluid as well measuring 2.7 x 1.2 cm. Left lung is clear. There is also suspicious right hilar lymph nodes. There is also a suspicious 2.5 x 1.7 cm hypodense mass posterior segment of the right hepatic lobe. The patient is seen today in consultation on the regular medical floor. She is currently resting comfortably in bed. Somewhat difficult to arouse. She did have morphine for pain. Most of the history is taken from her and daughter who are at the bedside. He is maintaining O2 saturations in the 90s on 3 L/m per nasal cannula. She's been afebrile. Hemodynamically stable. White count 7.6. Hemoglobin 11.1. Creatinine 0.70. Urinalysis cloudy with large leukocytes. She is scheduled for a computed tomography scan of the abdomen and pelvis as well. Review of Systems ROS unobtainable: due to mental status Past Medical History Past Medical History: Atrial Fibrillation, Cancer, Diabetes Mellitus, Hyperli pidemia, Hypertension Additional Past Medical History / Comment(s): SHINGLES, RIGHT SIDE ABD. BREAST CANCER 1998 OR, Reoccurence 2009-with 35 radiation treatments. NEW TUMOR FOUND THIS MARCH 2016, APPT WITH DR. MORE. OCC INCONT OF URINE (DEPENDS). "TACHYCARDIA". BOWEL OBSTRUCTION. History of Any Multi-Drug Resistant Organisms: None Reported Past Surgical History: Appendectomy, Bowel Resection, Breast Surgery, Cholecyst ectomy Additional Past Surgical History / Comment(s): 03/25/16 tumor left chest area (positive). 12/26/15 Bowel resection. 1998, Bilateral mastectomy. [facility] [employer]S. Past Anesthesia/Blood Transfusion Reactions: No Reported Reaction Past Psychological History: No Psychological Hx Reported Smoking Status: Former smoker Past Alcohol Use History: None Reported Past Drug Use History: None Reported - Past Family History Father Family Medical History: Myocardial Infarction (HI) Mother Family Medical History: Cancer Additional Family Medical History / Comment(s): BREAST CANCER Medications and Allergies Home Medications Medication Instructions Recorded Confirmed Type Metoprolol Tartrate [Lopressor] 100 mg PO BID 12/24/15 02/28/19 History Ondansetron Odt [Zofran Odt] 4 mg PO Q8HR PRN #14 tab 05/23/18 02/28/19 Rx Acetaminophen-Codeine 300-30mg 2 tab PO QID 02/28/19 02/28/19 History [Tylenol w/codeine #3] Aspirin [[place] Aspirin EC] 81 mg PO DAILY 02/28/19 02/28/19 History Dicyclomine [Bentyl] 10 mg PO TID 02/28/19 02/28/19 History Mirtazapine [Remeron] 15 mg PO HS 02/28/19 02/28/19 History Allergies Allergy/AdvReac Type Severity Reaction Status Date / Time No Known Allergies Allergy Verified 05/14/17 14:18 Physical Exam Vitals: Vital Signs Temp Pulse Pulse Resp BP BP Pulse Ox 03/01/19 15:05 83 16 03/01/19 14:55 85 16 100 03/01/19 14:29 93 20 146/84 96 03/01/19 13:05 97.9 F 90 18 134/73 97 03/01/19 05:31 98.3 F 98 17 150/77 97 02/28/19 21:00 98.1 F 109 H 22 164/70 95 02/28/19 20:00 109 H 02/28/19 16:20 121 H 18 125/61 97 02/28/19 16:00 120 H 18 132/66 96 02/28/19 15:50 120 H 18 132/66 97 Intake and Output 03/01/19 03/01/19 03/01/19 06:59 14:59 22:59 Intake Total 540 Balance 540 Intake: Oral 540 Other: # Voids 3 # Bowel Movements 1 Weight 42.184 kg GENERAL EXAM: Sedate, resting comfortably in bed, no apparent distress. On 3 L nasal cannula. HEAD: Normocephalic. EYES: Normal reaction of pupils, equal size. NOSE: Clear with pink turbinates. THROAT: No erythema or exudates. NECK: No masses, no JVD. CHEST: No chest wall deformity. LUNGS: Equal air entry with crackles in the right lung base, diminished. CVS: S1 and S2 normal with no audible murmur, regular rhythm. ABDOMEN: No hepatosplenomegaly, normal bowel sounds, no guarding or rigidity. SPINE: No scoliosis or deformity SKIN: No rashes CENTRAL NERVOUS SYSTEM: No focal deficits, tone is normal in all 4 extremities. EXTREMITIES: There is no peripheral edema. No clubbing, no cyanosis. Peripheral pulses are intact. Results - Laboratory Findings CBC and BMP: 03/01/19 12:10 03/01/19 12:10 PT/INR, D-dimer PT 10.5 sec (9.0-12.0) 02/28/19 12:15 INR 1.0 (<1.2) 02/28/19 12:15 D-Dimer 1.40 mg/L FEU (<0.60) H 02/28/19 12:15 Abnormal lab findings: Abnormal Labs 02/28/19 02/28/19 02/28/19 12:15 12:15 12:15 Hgb 11.0 L MCHC RDW 17.2 H Neutrophils # 8.8 H D-Dimer 1.40 H Chloride 108 H Carbon Dioxide 19 L BUN 41 H Glucose 166 H Calcium AST 54 H Urine Appearance Urine Protein Urine Ketones Ur Leukocyte Esterase Urine WBC 02/28/19 03/01/19 03/01/19 14:15 12:10 12:10 Hgb 11.1 L MCHC 30.7 L RDW 17.0 H Neutrophils # D-Dimer Chloride 115 H Carbon Dioxide 19 L BUN 22 H Glucose 117 H Calcium 8.3 L AST Urine Appearance Cloudy H Urine Protein 1+ H Urine Ketones 1+ H Ur Leukocyte Esterase Large H Urine WBC 9 H - Diagnostic Findings Chest x-ray: image reviewed CT scan - chest: image reviewed Assessment and Plan Assessment: Impression: #1 Right-sided chest pain secondary to moderate right-sided pleural effusion with suspicious lung masses. Suspicious right hilar lymph node as well. Melida picious rim-enhancing 2.5 x 1.7 cm hypodense mass at the posterior segment of the right hepatic lobe. #2 Recurrent breast cancer with previous lateral meniscectomy, previous radiation treatment, previous oral chemotherapy which the patient stopped in 2017. Suspect metastatic disease. #3 History of atrial fibrillation. #4 Diabetes mellitus. #5 Hyperlipidemia. #6 Hypertension. #7 History of shingles. #8 History of bowel obstruction status post resection. Plan: The patient was seen and evaluated by Dr. Dodd. Chest x-ray, CAT scans and labs reviewed. We'll obtain an ultrasound of the right chest to see if there is any significant free-flowing fluid that could be drained via thoracentesis diagnostic and/or therapeutic. She is overall prognosis remains quite guarded and poor at this point. She is a DO NOT RESUSCITATE/DO NOT INTUBATE CODE STATUS. The patient and family may choose to forego any interventions or treatments at this time. We will await until they have further discussion amongst themselves. In the interim, we will continue to follow and make further recommendations based on her clinical status. I, the cosigning physician, performed a history & physical examination of the patient. Lungs sounds diminished in the right chest with scattered crackles. Maintaining good O2 saturations in the 90s on 3 L/m per nasal cannula. I discussed the assessment and plan of care with my nurse practitioner, Cleo Calvo. I attest to the above note as dictated by her. Time with Patient: Greater than 30
--- NOTE | 2019-03-01 16:24 | CT ---
EXAMINATION TYPE: CT abdomen pelvis w con DATE OF EXAM: 03/01/2019 HISTORY: mets. breast ca. CT DLP: 820mGycm Automated Exposure Control for Dose Reduction was Utilized. CONTRAST: CT scan of the abdomen and pelvis is performed with IV Contrast, patient injected with 100 mL of Isov ue 300. COMPARISON: CT abdomen pelvis May 23, 2018. CT chest from yesterday. FINDINGS: LUNG BASES: Bilateral breast implants are partially imaged. There is partial visualization of at leas t moderate size right pleural effusion with associated compressive atelectasis. Suspicious anterior r ight pleural mass or metastatic lesions anteriorly right midlung and central infrahilar level are red emonstrated. LIVER/GB: Hepatic metastatic disease redemonstrated with central 2.7 cm lesion axial image 34 and lar mira peripheral 3.7 cm lesion posterior right hepatic lobe axial image 31. A few smaller lesions are p resent for reference axial image 28. PANCREAS: Generalized fat replaced atrophy of pancreas. SPLEEN: No significant abnormality is seen. ADRENALS: No significant abnormality is seen. KIDNEYS: A few small simple appearing cysts scattered throughout both kidneys. Symmetric cortical med ullary uptake and excretion is seen without hydronephrosis bilaterally. A 3 mm calculus suspected mid pole level left kidney coronal image 37. Bladder mildly distended and slightly hyperdense likely fro m recent CTA chest study yesterday. BOWEL: Evaluation bowel is suboptimal as oral contrast only reaches level of cecum and patient has ve ry little intra-abdominal fat. No suspicious small or large bowel dilatation. There is marked diverti culosis involving the mid to distal sigmoid colon with moderate to severe wall thickening felt presen t UTERUS/ADNEXA: Uterus not well seen with certainty, likely projects to left of midline and anteverted sagittal image 29 and axial image 73 may be atrophic or surgically absent. LYMPH NODES: No greater than 1cm abdominal or pelvic lymph nodes are appreciated. OSSEOUS STRUCTURES: Mild height loss superior L2 endplate redemonstrated moderate to advanced disc sp dino narrowing L5-S1 level noted osseous structures are demineralized. OTHER: Moderate to severe calcified plaque of aorta extends into branch vessels. Significant stenosis right common iliac artery felt present axial image 57 and coronal image 27. IMPRESSION: 1. Confirmation of hepatic metastatic disease as suspected on recent CTA chest study. No additional m etastatic disease in the abdomen or pelvis clearly seen.Partial visualization of known peripheral rig ht pleural-based or thoracic wall metastatic lesions and small to moderate-sized right pleural effusi on. 2. Severe atherosclerotic change of aorta with significant stenosis possible occlusion right common i liac artery, correlate clinically for right lower extremity peripheral vascular disease.
--- NOTE | 2019-03-01 17:02 | NM ---
EXAMINATION TYPE: NM bone scan whole body DATE OF EXAM: 03/01/2019 COMPARISON: NONE HISTORY: Breast cancer Delayed whole-body scanning was performed following the injection of 25.3 mCi Tc 99m MDP. Images acq uired 4.5 hours post injection. FINDINGS: There is focal symmetric increased uptake in the spine at L1 level that could relate to an acute frac ture. There is slight increased uptake in the T9 vertebra in a symmetric distribution also consistent with mild compression fracture. The chest x-ray yesterday shows 20% anterior wedging of a lower thor acic vertebra. There is slight increased uptake medial aspect of the left knee consistent with arthritic disease. Th ere is slight increased uptake at the costovertebral junction at T6 on the right side there is nonspe cific. There is increased uptake in the lower cervical spine. This is at multiple levels in the lower cervical spine and consistent with arthritic disease. IMPRESSION: Multiple areas of increased uptake as above are consistent with benign arthritic disease and compress ion fractures. Uptake at T6 at the costovertebral junction is nonspecific on the right side. I have o verall low suspicion of metastatic disease.
[2019-03-01] MEDS: MIRTAZAPINE 15 MG TAB PO SCH (20:10)
[2019-03-02] MEDS: DICYCLOMINE 10 MG CAP PO SCH ×3 (07:06→21:10)
[2019-03-02] MEDS: METOPROLOL TARTRATE 50 MG TAB PO SCH ×2 (07:06→21:10)
[2019-03-02] MEDS: LIDOCAINE 5% PATCH TOPICAL SCH (07:06)
[2019-03-02] MEDS: GABAPENTIN 100 MG CAP PO SCH ×3 (07:06→21:10)
[2019-03-02] MEDS: PANTOPRAZOLE 40 MG/10 ML VIAL IV SCH (07:06)
[2019-03-02] MEDS: ALBUTEROL NEBULIZED 2.5 MG/3 ML INHALATION PRN ×3 (07:28→21:15)
--- NOTE | 2019-03-02 08:55 | XR ---
EXAMINATION TYPE: XR chest 1V portable DATE OF EXAM: 03/02/2019 COMPARISON: 02/28/2019 HISTORY: Pain TECHNIQUE: Single frontal view of the chest is obtained. FINDINGS: Bilateral consolidation and pleural effusion noted. No pneumothorax. Diffuse osteopenia wi th arthropathy of the shoulders. Postsurgical change involving the right humeral head. No pulmonary m asses or adenopathy are similar in appearance the prior exam a partially obscured by the consolidated lung. IMPRESSION: Areas of consolidation and pleural effusion are stable.
--- NOTE | 2019-03-02 09:05 | P.PN ---
Subjective Progress Note Date: 03/02/19 Principal diagnosis: pleural effusion Patient was seen and examined. No acute events overnight. Underwent thoracocentesis yesterday, 1.2 L drained. She has no complaints this morning. She denies any chest pain, shortness of breath or palpitations. No nausea or vomiting. No fever or chills. Objective - Vital Signs Vital signs: Vital Signs Temp 98.2 F 03/02/19 06:43 Pulse 96 03/02/19 07:37 Resp 18 03/02/19 06:43 BP 157/74 03/02/19 06:43 Pulse Ox 97 03/02/19 07:28 Intake & Output 03/01/19 03/02/19 03/02/19 18:59 06:59 18:59 Intake Total 1080 Balance 1080 Weight 42.184 kg Intake: Oral 1080 Other: Voiding Method Bedside Commode Bedside Commode Incontinent # Voids 4 1 # Bowel Movements 1 1 - Exam General: [non toxic], [no distress], [appears at stated age] Derm: [warm], [dry] Head: [atraumatic], [normocephalic], [symmetric] Eyes: [EOMI], [no lid lag], [anicteric sclera] Mouth: [no lip lesion], [mucus membranes moist] Cardiovascular: [S1S2 reg], [no murmur], [positive DP pulse bilateral] Lungs: [Decreased breath sounds on the right side with good air entry], [no r honchi, no rales] , [no accessory muscle use] Abdominal: [soft], [ nontender to palpation], [no guarding], [no appreciable organomegaly] Ext: [no gross muscle atrophy], [no edema], [no contractures] Neuro: [no focal neuro deficits] Psych: [Alert], [oriented], [appropriate affect] - Labs CBC & Chem 7: 03/01/19 12:10 03/01/19 12:10 Labs: Abnormal Lab Results - Last 24 Hours (Table) 02/28/19 03/01/19 03/01/19 Range/Units 14:15 12:10 12:10 Hgb 11.1 L (11.4-16.0) gm/dL MCHC 30.7 L (31.0-37.0) g/dL RDW 17.0 H (11.5-15.5) % Chloride 115 H (98-107) mmol/L Carbon Dioxide 19 L (22-30) mmol/L BUN 22 H (7-17) mg/dL Glucose 117 H (74-99) mg/dL Calcium 8.3 L (8.4-10.2) mg/dL CA 15-3 Antigen 312.3 H (0.0-32.3) U/mL CA 27-29 437.3 H (0.0-38.5) U/mL Microbiology - Last 24 Hours (Table) 02/28/19 12:15 Blood Culture - Preliminary Blood No Growth after 24 hours Assessment and Plan Assessment: Assessment and Plan Right pleural effusion, likely malignant secondary to stage IV metastatic breast cancer Right sided abdominal pain Anorexia Atrial fibrillation Diabetes mellitus Hypertension Metastatic disease to the lung confirmed on CT of the chest with right-sided pleural effusion given history of breast cancer. D-dimer elevated, CTA chest excluded PE. CA antigen markers elevated. CT AP confirms metastatic disease but shows no progression in the abdomen and pelvis. Bone scan shows no metastatic disease. Plans: O2 per NC to maintain O2 saturation greater than 92%. Pulmonology consulted, underwent thoracocentesis 03/01/2019, cytology pending. Given likely diagnosis of stage 4 metastatic breast CA, will consult Hospice as per family. Follow oncology recommendations. History of herpetic neuralgia. Troponin < 0.012, EKG showing sinus tachycardia, ACS ruled out. Plans: Tylenol or T3 for pain management. Continue gabapentin. Discontinue ibuprofen and morphine. Will add lidocaine patch. BMI 16.5. Plans: Decrease IVF from 100 cc to 50 cc/hour. Add Ensure. Follow dietitian consult. Continue Mirtazapine, hopefully to help with appetite. Stable. Plans: Continue metoprolol. No anticoagulation given DNR/DNI status. [id number] glucose 117. Plans: Regular Accu-Cheks. No insulin due to poor appetite. BP 157/74. Plans: Continue metoprolol. Monitor vitals, adjust medications as necessary. Patient admitted for shortness of breath. Positive right-sided pleural effusion, likely malignant secondary to stage IV metastatic breast cancer. Penelope abraham interested in pursuing hospice care. Pulmonology and oncology on board. Thoracocentesis performed, cytology pending.
--- NOTE | 2019-03-02 12:42 | P.PN ---
Subjective Progress Note Date: 03/02/19 Principal diagnosis: Right pleural effusion, suspicious liver lesion, history of breast cancer In follow-up today patient is status post palliative and diagnostic thoracentesis. She is resting comfortably, no pain to report, her family feels that she is doing much better. Objective - Vital Signs Vital signs: Vital Signs Temp 98.2 F 03/02/19 06:43 Pulse 96 03/02/19 07:37 Resp 18 03/02/19 06:43 BP 157/74 03/02/19 06:43 Pulse Ox 97 03/02/19 07:28 Intake & Output 03/01/19 03/02/19 03/02/19 18:59 06:59 18:59 Intake Total 1080 Balance 1080 Weight 42.184 kg Intake: Oral 1080 Other: Voiding Method Bedside Commode Bedside Commode Incontinent # Voids 4 1 # Bowel Movements 1 1 - Exam WD, thin, frail,female, semi-fowlers position in bed, NAD, sleeping, respirations even and unlabored, no swelling - Labs CBC & Chem 7: 03/01/19 12:10 03/01/19 12:10 Labs: Abnormal Lab Results - Last 24 Hours (Table) 02/28/19 03/01/19 03/01/19 Range/Units 14:15 12:10 12:10 Hgb 11.1 L (11.4-16.0) gm/dL MCHC 30.7 L (31.0-37.0) g/dL RDW 17.0 H (11.5-15.5) % Chloride 115 H (98-107) mmol/L Carbon Dioxide 19 L (22-30) mmol/L BUN 22 H (7-17) mg/dL Glucose 117 H (74-99) mg/dL Calcium 8.3 L (8.4-10.2) mg/dL CA 15-3 Antigen 312.3 H (0.0-32.3) U/mL CA 27-29 437.3 H (0.0-38.5) U/mL Microbiology - Last 24 Hours (Table) 02/28/19 12:15 Blood Culture - Preliminary Blood No Growth after 24 hours - Imaging and Cardiology CT scan - abdomen: report reviewed CT scan - pelvis: report reviewed NM bone scan report reviewed Assessment and Plan (1) Breast cancer Narrative/Plan: History of, no treatment for over 2 years now. Last seen by Dr. Jorge about 1 year ago Current Visit: Yes Status: Chronic Priority: High Code(s): C50.919 - MALIGNANT NEOPLASM OF UNSP SITE OF UNSPECIFIED FEMALE BREAST SNOMED Code(s): 854306384 (2) Liver lesion Narrative/Plan: Confirmation on CT AP, suspect metastatic disease Current Visit: Yes Status: Acute Priority: High Code(s): K76.9 - LIVER DISEASE, UNSPECIFIED SNOMED Code(s): 819476706 (3) Mediastinal lymphadenopathy Current Visit: Yes Status: Acute Priority: High Code(s): R59.0 - LOCALIZED ENLARGED LYMPH NODES SNOMED Code(s): 01568083 (4) Pleural effusion, right Narrative/Plan: S/P thoracentesis, pending cytology Current Visit: Yes Status: Acute Priority: High Code(s): J90 - PLEURAL EFFUSION, NOT ELSEWHERE CLASSIFIED SNOMED Code(s): 23298976 Plan: High suspicion for metastatic breast cancer with pt history. Met with pt and family at bedside to discuss results of completed testing CT AP confirmed liver lesion as metastatic, NM bone scan reported as decreased suspicion for bone mets. Tumor markers both in the hundred's range. S/P thoracentesis today, pt respiratory symptoms are improved. Pending pleural fluid cytology. We discussed the imaging results as stated above. We reviewed again that the patient's presentation is most consistent with a metastatic breast cancer but, we should have definitive results soon. If the pleural fluid is positive for breast primary malignancy this will be sent for testing of hormone status. Patient has stated wishes to family, and family concurs, that she would not want aggressive treatment including chemotherapy. But, if patient's malignancy is hormone receptor positive then hormonal inhibitor therapy would absolutely be recommended for palliation of symptoms, and many times, control of disease for quite some time. All of the patient's family's questions were answered to the best of my ability. Told him we would revisit them once we have the cytology results. If the cytology is negative they may want to pursue further diagnostic workup, we will address if necessary.
[2019-03-02 14:56] LABS: Appearance,BF Cloudy; Nucleated Cells, Body Fluid 136 /uL; RBC, Body Fluid 5550 /uL
[2019-03-02 14:58] LABS: Mononuclear WBC,Body Fluid 95 %; Polynuclear WBC,Body Fluid 5 %; Total Cells Counted,Body Fluid 100
--- NOTE | 2019-03-02 16:16 | P.PN ---
Subjective Progress Note Date: 03/02/19 Principal diagnosis: Right-sided chest pain secondary to right pleural effusion This is a very pleasant 83-year-old female patient who follows with Dr. Chu as her primary care physician. She has a history of diabetes mellitus, hyperlipidemia, hypertension, atrial fibrillation, shingles. Chest has a history of recurrent breast cancer initially in 1998 and was status post bi lateral mastectomy. A recurrence in 2009 with 35 subsequent radiation treatments. New tumor on the left chest was found in March 2016 and she was treated with oral chemotherapy through 2016 and then quit taking them on her own. She presented here to the emergency room yesterday with a 10 day history of progressive shortness of breath and increasing right-sided chest discomfort. Chest x-ray showed evidence of COPD and increasing opacity within the right lung and a combination of pleural fluid and airspace disease. CT angiogram reveals no acute pulmonary embolism. There was findings consistent with diffuse metastatic disease with associated small to moderate-sized right pleural effusion, a tubal a 2.5 x 1.3 cm hyperdense area in the anterior right midlung and several suspicious areas of mass or masslike consolidation anterior right hilar level. Suspicious lesion in the posterior medial right pleural fluid as well measuring 2.7 x 1.2 cm. Left lung is clear. There is also suspicious right hilar lymph nodes. There is also a suspicious 2.5 x 1.7 cm hypodense mass posterior segment of the right hepatic lobe. The patient is seen today in consultation on the regular medical floor. She is currently resting comfortably in bed. Somewhat difficult to arouse. She did have morphine for pain. Most of the history is taken from her and daughter who are at the bedside. He is maintaining O2 saturations in the 90s on 3 L/m per nasal cannula. She's been afebrile. Hemodynamically stable. White count 7.6. Hemoglobin 11.1. Creatinine 0.70. Urinalysis cloudy with large leukocytes. She is scheduled for a computed tomography scan of the abdomen and pelvis as well. The patient is seen today 03/02/2019 in follow-up on the regular medical floor. She is more awake and alert today compared to yesterday. In her family have consented to the thoracentesis which was performed by Dr. Dodd this morning with 1.2 L of fluid removed. Sent for cytology and analysis. Follow-up chest x-ray revealed improvement and no evidence of pneumothorax. She denies any worsening shortness of breath, cough or congestion. She's been afebrile. Hemodynamically stable. Blood culture reveals no growth. Objective - Vital Signs Vital signs: Vital Signs Temp 98.4 F 03/02/19 14:52 Pulse 85 03/02/19 14:52 Resp 16 03/02/19 14:52 BP 132/67 03/02/19 14:52 Pulse Ox 97 03/02/19 14:52 Intake & Output 03/01/19 03/02/19 03/02/19 18:59 06:59 18:59 Intake Total 1080 540 Balance 1080 540 Weight 42.184 kg Intake: Oral 1080 540 Other: Voiding Method Bedside Commode Bedside Commode Incontinent # Voids 4 1 2 # Bowel Movements 1 1 1 - Exam GENERAL EXAM: Sedate, resting comfortably in bed, no apparent distress. On room air. HEAD: Normocephalic. EYES: Normal reaction of pupils, equal size. NOSE: Clear with pink turbinates. THROAT: No erythema or exudates. NECK: No masses, no JVD. CHEST: No chest wall deformity. LUNGS: Equal air entry with crackles in the right lung base, diminished. CVS: S1 and S2 normal with no audible murmur, regular rhythm. ABDOMEN: No hepatosplenomegaly, normal bowel sounds, no guarding or rigidity. SPINE: No scoliosis or deformity SKIN: No rashes CENTRAL NERVOUS SYSTEM: No focal deficits, tone is normal in all 4 extremities. EXTREMITIES: There is no peripheral edema. No clubbing, no cyanosis. Peripheral pulses are intact. - Labs CBC & Chem 7: 03/01/19 12:10 03/01/19 12:10 Labs: Abnormal Lab Results - Last 24 Hours (Table) 02/28/19 Range/Units 14:15 CA 15-3 Antigen 312.3 H (0.0-32.3) U/mL CA 27-29 437.3 H (0.0-38.5) U/mL Microbiology - Last 24 Hours (Table) 02/28/19 12:15 Blood Culture - Preliminary Blood No Growth after 48 hours Assessment and Plan Assessment: Impression: #1 Right-sided chest pain secondary to moderate right-sided pleural effusion with suspicious lung masses. Suspicious right hilar lymph node as well. Suspicious rim-enhancing 2.5 x 1.7 cm hypodense mass at the posterior segment of the right hepatic lobe. Status post right-sided thoracentesis on 03/02/2019 with 1.2 L of fluid removed. Pathology and fluid analysis pending. #2 Recurrent breast cancer with previous lateral meniscectomy, previous radiation treatment, previous oral chemotherapy which the patient stopped in 2017. Suspect metastatic disease. #3 History of atrial fibrillation. #4 Diabetes mellitus. #5 Hyperlipidemia. #6 Hypertension. #7 History of shingles. #8 History of bowel obstruction status post resection. Plan: The patient was seen and evaluated by Dr. Dodd. He did perform a right-sided thoracentesis this morning with 1.2 L of fluid removed. Pathology is fluid analysis pending. Follow-up chest x-ray without pneumothorax. Her breathing has improved today. Less right-sided chest discomfort. We will continue to follow and make further recommendations based on her clinical status. I, the cosigning physician, performed a history & physical examination of the patient. Lungs sounds diminished in the right chest with scattered crackles. Maintaining good O2 saturations in the 90s on room air. I discussed the assessment and plan of care with my nurse practitioner, Cleo Calvo. I attest to the above note as dictated by her.
[2019-03-02] MEDS: SODIUM CHLORIDE 0.9% 1,000 ML IV SCH (16:17)
[2019-03-02 18:32] LABS: Total Protein, Body Fluid 3300 mg/dL
[2019-03-02] MEDS: MIRTAZAPINE 15 MG TAB PO SCH (21:10)
[2019-03-02] MEDS: Acetaminophen-Codeine 300-30mg TAB PO PRN (23:09)
[2019-03-03] MEDS: Acetaminophen-Codeine 300-30mg TAB PO PRN ×2 (04:03→11:48)
[2019-03-03 05:28] VITALS: RESP 20
[2019-03-03] MEDS ORDERED: PANTOPRAZOLE 40 MG TABLET PO SCH (07:30)
--- NOTE | 2019-03-03 08:43 | PCN ---
PROCEDURE NOTE DATE OF THE PROCEDURE: 03/02/2019 OPERATIVE REPORT: Right-sided thoracentesis. ANESTHESIA USED: 2 mL of 1% lidocaine. PROCEDURE: The patient was placed in a sitting upright position, the area below the right scapula which was earlier localized by ultrasound guidance was prepared in a sterile fashion and drapes were applied. Then the area was anesthetized locally with lidocaine and a 26-gauge needle was inserted at the same site, which is at the 8th intercostal space and tip of the scapula, advanced into the pleural space until the fluid was localized. Then a small tiny incision was made, and a standard thoracentesis catheter and needle were inserted at the same site, advanced into the pleural space. Fluid was obtained and localized again. Then the needle was pulled out of the pleural catheter and the catheter was advanced. Freely flowing fluid was removed, slightly serosanguineous, a total of 1200 mL of fluid was drained from the right pleural space. Procedure was well tolerated. No evidence of any immediate complications. Chest x-ray was ordered postoperatively and the fluid was sent for different diagnostic studies. MMODL / IJN: [id number] /
[2019-03-03] MEDS: METOPROLOL TARTRATE 50 MG TAB PO SCH (09:01)
[2019-03-03] MEDS: DICYCLOMINE 10 MG CAP PO SCH ×2 (09:02→15:41)
[2019-03-03] MEDS: GABAPENTIN 100 MG CAP PO SCH ×2 (09:02→15:41)
--- NOTE | 2019-03-03 09:13 | P.PN ---
Subjective Progress Note Date: 03/03/19 Principal diagnosis: Shortness of breath Patient was seen and examined. No acute events overnight. Patient reports considerable improvement in her breathing since yesterday. Prefers to go home with hospice. Per oncology, pleural fluid cytology is pending. Question of Pleurx catheter by case management. Patient denies any chest pain, shortness of breath or palpitations. No nausea or vomiting. No fever or chills. Objective - Vital Signs Vital signs: Vital Signs Temp 97.8 F 03/03/19 04:45 Pulse 91 03/03/19 04:45 Resp 20 03/03/19 04:45 BP 159/74 03/03/19 04:45 Pulse Ox 94 L 03/03/19 04:45 Intake & Output 03/02/19 03/03/19 03/03/19 18:59 06:59 18:59 Intake Total 540 300 Balance 540 300 Intake: Oral 540 300 Other: Voiding Method Bedside Commode Bedside Commode Incontinent Incontinent # Voids 2 3 # Bowel Movements 1 - Exam General: [non toxic], [no distress], [appears at stated age] Derm: [warm], [dry] Head: [atraumatic], [normocephalic], [symmetric] Eyes: [EOMI], [no lid lag], [anicteric sclera] Mouth: [no lip lesion], [mucus membranes moist] Cardiovascular: [S1S2 reg], [no murmur], [positive DP pulse bilateral] Lungs: [Decreased breath sounds on the right side with good air entry], [no rhonchi, no rales] , [no accessory muscle use] Abdominal: [soft], [ nontender to palpation], [no guarding], [no appreciable organomegaly] Ext: [no gross muscle atrophy], [no edema], [no contractures] Neuro: [no focal neuro deficits] Psych: [Alert], [oriented], [appropriate affect] - Labs CBC & Chem 7: 03/01/19 12:10 03/01/19 12:10 Labs: Microbiology - Last 24 Hours (Table) 03/02/19 08:30 Gram Stain - Preliminary Pleural Fluid Body Fluid Culture - Preliminary 02/28/19 12:15 Blood Culture - Preliminary Blood No Growth after 48 hours Assessment and Plan Assessment: Assessment and Plan Right pleural effusion, likely malignant secondary to stage IV metastatic breast cancer Right sided abdominal pain Anorexia Atrial fibrillation Diabetes mellitus Hypertension Metastatic disease to the lung confirmed on CT of the chest with right-sided pleural effusion given history of breast cancer. D-dimer elevated, CTA chest excluded PE. CA antigen markers elevated. CT AP confirms metastatic disease but shows no progression in the abdomen and pelvis. Bone scan shows no metastatic disease. Plans: O2 per NC to maintain O2 saturation greater than 92%. Pulmonology consulted, underwent thoracocentesis 03/01/2019, cytology pending. Given likely diagnosis of stage 4 metastatic breast CA, will consult Hospice as per family. Follow oncology recommendations. History of herpetic neuralgia. Troponin < 0.012, EKG showing sinus tachycardia, ACS ruled out. Plans: Tylenol or T3 for pain management. Continue gabapentin. Discontinue ibuprofen and morphine. Will add lidocaine patch. BMI 16.5. Plans: Decrease IVF from 100 cc to 50 cc/hour. Add Ensure. Follow dietitian consult. Continue Mirtazapine, hopefully to help with appetite. Stable. Plans: Continue metoprolol. No anticoagulation given DNR/DNI status. [id number] glucose 117. Plans: Regular Accu-Cheks. No insulin due to poor appetite. BP 159/74. Plans: Continue metoprolol. Monitor vitals, adjust medications as necessary. Patient admitted for shortness of breath. Positive right-sided pleural effusion, likely malignant secondary to stage IV metastatic breast cancer. Thoracocentesis performed, cytology pending. If positive for recurrent breast cancer, hormonal testing to be done. Either way, this would be palliative in nature and patient prefers to go home with home hospice. Will discuss with oncology and pulmonology for further recommendations. Likely DC in 1-2 days.
[2019-03-03 10:43] LABS: Anisocytosis Slight; Basophils % (A) 1 %; Eosinophils # (A) 0.5 k/uL (0-0.7); Eosinophils % (A) 6 %; HGB 11.2 gm/dL (11.4-16.0); Hypochromasia Marked; Lymphocytes # (A) 1.5 k/uL (1.0-4.8); Lymphocytes % (A) 22 %; MCH 27.8 pg (25.0-35.0); MCHC 29.4 g/dL (31.0-37.0); MCV 94.8 fL (80.0-100.0); Mean Platelet Volume 6.5; Monocytes # (A) 0.5 k/uL (0-1.0); Monocytes % (A) 7 %; Neutrophils # (A) 4.4 k/uL (1.3-7.7); Neutrophils % (A) 63 %; Platelet Count 396 k/uL (150-450); RBC 4.01 m/uL (3.80-5.40); RDW 17.3 % (11.5-15.5)
[2019-03-03] MEDS: LIDOCAINE 5% PATCH TOPICAL SCH (10:58)
[2019-03-03 11:00] LABS: African American GFR (CKD) >90 (>60 ml/min/1.73 sqM); Anion Gap 8 mmol/L; Blood Urea Nitrogen 13 mg/dL (7-17); Carbon Dioxide 25 mmol/L (22-30); Chloride 110 mmol/L (98-107); Glucose 182 mg/dL (74-99); Potassium 4.2 mmol/L (3.5-5.1); Sodium 143 mmol/L (137-145)
[2019-03-03] MEDS: SODIUM CHLORIDE 0.9% 1,000 ML IV SCH (12:41)
[2019-03-03 13:19] VITALS: BP 125/67; PULSE 83; TEMP 98.6
--- NOTE | 2019-03-03 14:08 | P.PN ---
Subjective Progress Note Date: 03/03/19 Principal diagnosis: Right-sided pleural effusion, most likely malignant unless proven otherwise. This is a very pleasant 83-year-old female patient who follows with Dr. Chu as her primary care physician. She has a history of diabetes mellitus, hyperlipidemia, hypertension, atrial fibrillation, shingles. Chest has a history of recurrent breast cancer initially in 1998 and was status post bilateral mastectomy. A recurrence in 2009 with 35 subsequent radiation treatments. New tumor on the left chest was found in March 2016 and she was treated with oral chemotherapy through 2016 and then quit taking them on her own. She presented here to the emergency room yesterday with a 10 day history of progressive shortness of breath and increasing right-sided chest discomfort. Chest x-ray showed evidence of COPD and increasing opacity within the right lung and a combination of pleural fluid and airspace disease. CT angiogram reveals no acute pulmonary embolism. There was findings consistent with diffuse metastatic disease with associated small to moderate-sized right pleural effusion, a tubal a 2.5 x 1.3 cm hyperdense area in the anterior right midlung and several suspicious areas of mass or masslike consolidation anterior right hilar level. Suspicious lesion in the posterior medial right pleural fluid as well measuring 2.7 x 1.2 cm. Left lung is clear. There is also suspicious right hilar lymph nodes. There is also a suspicious 2.5 x 1.7 cm hypodense mass posterior segment of the right hepatic lobe. The patient is seen today in consultation on the regular medical floor. She is currently resting comfortably in bed. Somewhat difficult to arouse. She did have morphine for pain. Most of the history is taken from her and daughter who are at the bedside. He is maintaining O2 saturations in the 90s on 3 L/m per nasal cannula. She's been afebrile. Hemodynamically stable. White count 7.6. Hemoglobin 11.1. Creatinine 0.70. Urinalysis cloudy with large leukocytes. She is scheduled for a computed tomography scan of the abdomen and pelvis as well. Patient was reevaluated today on 03/03/2019, patient is feeling better since she had a right-sided thoracentesis done yesterday. No cough no wheezing no fever no chills no hemoptysis. Patient is known to have history of diffuse metastatic disease secondary to breast cancer. The fluid which I drained yesterday is exudative in nature with relatively high protein and high LDH, this is felt to be malignant unless for otherwise. Family is requesting for possibly discharging the patient with hospice, and at this point I believe it is very appropriate. Patient could be discharged home and could have follow-up on outpatient basis regarding the pleural effusion most likely will be malignant. But the cytology is pending at this point. Objective - Vital Signs Vital signs: Vital Signs Temp 98.6 F 03/03/19 13:07 Pulse 83 03/03/19 13:07 Resp 20 03/03/19 13:07 BP 125/67 03/03/19 13:07 Pulse Ox 96 03/03/19 13:07 Intake & Output 03/02/19 03/03/19 03/03/19 18:59 06:59 18:59 Intake Total 540 300 Balance 540 300 Intake: Oral 540 300 Other: Voiding Method Bedside Commode Bedside Commode Bedside Commode Incontinent Incontinent Incontinent # Voids 2 3 1 # Bowel Movements 1 - Exam GENERAL EXAM: Sedate, resting comfortably in bed, no apparent distress. On 3 L nasal cannula. HEAD: Normocephalic. EYES: Normal reaction of pupils, equal size. NOSE: Clear with pink turbinates. THROAT: No erythema or exudates. NECK: No masses, no JVD. CHEST: No chest wall deformity. LUNGS: Equal air entry with crackles in the right lung base, diminished. CVS: S1 and S2 normal with no audible murmur, regular rhythm. ABDOMEN: No hepatosplenomegaly, normal bowel sounds, no guarding or rigidity. SPINE: No scoliosis or deformity SKIN: No rashes CENTRAL NERVOUS SYSTEM: No focal deficits, tone is normal in all 4 extremities. EXTREMITIES: There is no peripheral edema. No clubbing, no cyanosis. Peripheral pulses are intact. - Labs CBC & Chem 7: 03/03/19 10:15 03/03/19 10:15 Labs: Abnormal Lab Results - Last 24 Hours (Table) 03/03/19 03/03/19 Range/Units 10:15 10:15 Hgb 11.2 L (11.4-16.0) gm/dL MCHC 29.4 L (31.0-37.0) g/dL RDW 17.3 H (11.5-15.5) % Chloride 110 H (98-107) mmol/L Glucose 182 H (74-99) mg/dL Microbiology - Last 24 Hours (Table) 03/02/19 08:30 Gram Stain - Preliminary Pleural Fluid Body Fluid Culture - Preliminary 02/28/19 12:15 Blood Culture - Preliminary Blood No Growth after 48 hours Assessment and Plan Assessment: #1 Right-sided chest pain secondary to moderate right-sided pleural effusion, felt to be malignant unless proven otherwise. Status post right-sided thoracentesis 1200 mL of exudative pleural effusion drained from the right pleural space yesterday #2 Recurrent breast cancer with previous lateral meniscectomy, previous radiation treatment, previous oral chemotherapy which the patient stopped in 2016. Suspect metastatic disease. #3 History of atrial fibrillation. #4 Diabetes mellitus. #5 Hyperlipidemia. #6 Hypertension. #7 History of shingles. #8 History of bowel obstruction status post resection. Plan: Consider discharge planning today, agree with hospice if the patient will eventually require a Pleurx catheter, this could be arranged for on outpatient basis. No need to keep the patient in the hospital for Pleurx catheter placement at this point. Again this could be done on outpatient basis by thoracic surgery if the fluid recurs and if proven to be malignant. Discussed her condition with family at bedside. Time with Patient: Less than 30
--- NOTE | 2019-03-03 15:44 | P.PN ---
Subjective Progress Note Date: 03/03/19 Principal diagnosis: Right pleural effusion, suspicious liver lesion, history of breast cancer In follow-up today patient is status post palliative and diagnostic thoracentesis. She is resting comfortably, no pain to report, her family feels that she is doing much better. Objective - Vital Signs Vital signs: Vital Signs Temp 98.6 F 03/03/19 13:07 Pulse 83 03/03/19 13:07 Resp 20 03/03/19 13:07 BP 125/67 03/03/19 13:07 Pulse Ox 96 03/03/19 13:07 Intake & Output 03/02/19 03/03/19 03/03/19 18:59 06:59 18:59 Intake Total 540 300 Balance 540 300 Intake: Oral 540 300 Other: Voiding Method Bedside Commode Bedside Commode Bedside Commode Incontinent Incontinent Incontinent # Voids 2 3 1 # Bowel Movements 1 - Labs CBC & Chem 7: 03/03/19 10:15 03/03/19 10:15 Labs: Abnormal Lab Results - Last 24 Hours (Table) 03/03/19 03/03/19 Range/Units 10:15 10:15 Hgb 11.2 L (11.4-16.0) gm/dL MCHC 29.4 L (31.0-37.0) g/dL RDW 17.3 H (11.5-15.5) % Chloride 110 H (98-107) mmol/L Glucose 182 H (74-99) mg/dL Microbiology - Last 24 Hours (Table) 02/28/19 12:15 Blood Culture - Preliminary Blood No Growth after 72 hours 03/02/19 08:30 Gram Stain - Preliminary Pleural Fluid Body Fluid Culture - Preliminary Assessment and Plan (1) Breast cancer Current Visit: Yes Status: Chronic Priority: High Code(s): C50.919 - MALIGNANT NEOPLASM OF UNSP SITE OF UNSPECIFIED FEMALE BREAST SNOMED Code(s): 985199167 (2) Liver lesion Current Visit: Yes Status: Acute Priority: High Code(s): K76.9 - LIVER DISEASE, UNSPECIFIED SNOMED Code(s): 842577004 (3) Mediastinal lymphadenopathy Current Visit: Yes Status: Acute Priority: High Code(s): R59.0 - LOCALIZED ENLARGED LYMPH NODES SNOMED Code(s): 78496895 (4) Pleural effusion, right Current Visit: Yes Status: Acute Priority: High Code(s): J90 - PLEURAL EFFUSION, NOT ELSEWHERE CLASSIFIED SNOMED Code(s): 17063695 Plan: Case discussed with Attending, Social Work, Palliative Nurse and Nursing. Plan is for pt to go home with palliative care. Her symptoms will be managed and she will have access to needed services I CONFIRMED with pt that she does not want treatment for cancer, family agrees. If pl fluid returns negative then continuing with palliative care or transiting to hospice is acceptable. If pleural fluid returns positive for breast cancer then 1) If hormone receptor positive stay on palliative care and Oncologist will prescribe AI for treatment- pt and family fully knowing the intent is palliation of symptoms, and to what degree the AI will palliate symptoms is unknown. 2) If hormone receptor n egative then recommendation would be hospice as there would be no treatment options other then chemo and pt states she does not want. All involved in case, as well as pt and family verbalize understanding the above The only concern is the pleural effusion-it is why pt came to hospital, and she was symptomatic. She may want to remain palliative to allow for thoracentesis PRN or if Pulmonary feel a drain is appropriate then that could be placed and then transition to hospice. Pt wants to go home now so, it is ok to go with palliative, further plans to follow. Time with Patient: Greater than 30 (>50% time counseling and coordinating care)
[2019-03-03] MEDS ORDERED: LIDOCAINE 5% PATCH TOPICAL SCH (21:00)
== END 2019-03-03 16:38 | disposition home health service (06) | DRG 181 ==
LOC: EC 11:59 → 4MS4W 16:16 → INTOOBSV 16:16 → 4MS4W 03-01 03:47 → OBSVTOIN 03-01 15:47
PROVIDERS: ADMIT Family Medicine; ATTEND Family Medicine
PROC: 0W993ZX Drainage of Right Pleural Cavity, Percutaneous Approach, Diagnostic (ICD-10-PCS; principal; 2019-03-01 08:30)
DX: C78.01 Secondary malignant neoplasm of right lung (principal); J91.0 Malignant pleural effusion; Z68.1 Body mass index [BMI] 19.9 or less, adult; C78.7 Secondary malignant neoplasm of liver and intrahepatic bile duct; B02.29 Other postherpetic nervous system involvement; Z17.0 Estrogen receptor positive status [ER+]; Z66 Do not resuscitate; E78.5 Hyperlipidemia, unspecified; I48.91 Unspecified atrial fibrillation; R63.0 Anorexia; J44.9 Chronic obstructive pulmonary disease, unspecified; G89.29 Other chronic pain; Z98.82 Breast implant status; E11.9 Type 2 diabetes mellitus without complications; I10 Essential (primary) hypertension; Z90.13 Acquired absence of bilateral breasts and nipples; Z90.49 Acquired absence of other specified parts of digestive tract; Z79.82 Long term (current) use of aspirin; Z79.899 Other long term (current) drug therapy; Z85.3 Personal history of malignant neoplasm of breast; Z51.5 Encounter for palliative care; Z80.3 Family history of malignant neoplasm of breast; Z82.49 Family history of ischemic heart disease and other diseases of the circulatory system; Z86.19 Personal history of other infectious and parasitic diseases; Z92.3 Personal history of irradiation; Z87.891 Personal history of nicotine dependence
CPT/HCPCS: 36410; 36415; 71045; 71046; 71275; 74177; 76604; 76937; 78306; 80048; 80053; 81001; 82945; 83615; 83735; 83880; 84157; 84484; 85025; 85379; 85610; 85730; 86300; 87040; 87070; 87205; 88108; 88305; 88341; 88342; 89050; 93005; 94640; 94760; 96361; 96374; 99285

== ENCOUNTER 2019-03-09 10:50 | Observation (INO) | payer MEDICARE, OTHER ==
[2019-03-09] MEDS ORDERED: HYDROmorphone 1 MG/ML 1 ML SYRINGE IVP STA (11:20)
--- NOTE | 2019-03-09 11:47 | ED ---
General Adult HPI - General Chief complaint: Shortness of Breath Stated complaint: dom Time Seen by Provider: 03/09/19 10:55 Source: patient, EMS, RN notes reviewed Mode of arrival: EMS Limitations: no limitations - History of Present Illness Initial comments: This is an 83-year-old female who presents emergency department with past medical history significant for metastatic breast cancer. Patient wants to be a hospice patient but today she was having difficulty breathing and was uncomfortable so the family brought her to the emergency department. Patient currently is stating on oxygen she doesn't feel short of breath but she does have chronic right flank pain secondary to previous shingles. Patient states she has no chest pain she has no fever chills or cough patient denies any abdominal pain patient denies nausea vomiting diarrhea. Patient denies headache patient denies numbness weakness. - Related Data Home Medications Medication Instructions Recorded Confirmed Metoprolol Tartrate [Lopressor] 100 mg PO BID 12/24/15 03/09/19 Aspirin [[place] Aspirin EC] 162 mg PO DAILY 02/28/19 03/09/19 Dicyclomine [Bentyl] 10 mg PO TID 02/28/19 03/09/19 Mirtazapine [Remeron] 15 mg PO HS 02/28/19 03/09/19 Acetaminophen-Codeine 300-30mg 2 tab PO Q4HR PRN 03/09/19 03/09/19 [Tylenol w/codeine #3] Previous Rx's Medication Instructions Recorded Albuterol Nebulized [Ventolin 2.5 mg INHALATION RT-QID PRN #90 03/03/19 Nebulized] nebu Allergies Allergy/AdvReac Type Severity Reaction Status Date / Time hydromorphone [From Dilaudid] AdvReac Hallucinati Verified 03/09/19 14:14 ons Review of Systems ROS Statement: Those systems with pertinent positive or pertinent negative responses have been documented in the HPI. ROS Other: All systems not noted in ROS Statement are negative. Past Medical History Past Medical History: Atrial Fibrillation, Cancer, Diabetes Mellitus, Hyperlipidemia, Hypertension Additional Past Medical History / Comment(s): SHINGLES, RIGHT SIDE ABD. BREAST CANCER 1998 OR, Reoccurence 2009-with 35 radiation treatments. NEW TUMOR FOUND THIS MARCH 2016, APPT WITH DR. MORE. OCC INCONT OF URINE (DEPENDS). "TACHYCARDIA". BOWEL OBSTRUCTION. History of Any Multi-Drug Resistant Organisms: None Reported Past Surgical History: Appendectomy, Bowel Resection, Breast Surgery, Cholecystectomy Additional Past Surgical History / Comment(s): 03/25/16 tumor left chest area (positive). 12/26/15 Bowel resection. 1998, Bilateral mastectomy. JAMES CATARACTS. Past Anesthesia/Blood Transfusion Reactions: No Reported Reaction Past Psychological History: No Psychological Hx Reported Smoking Status: Former smoker Past Alcohol Use History: None Reported Past Drug Use History: None Reported - Past Family History Father Family Medical History: Myocardial Infarction ([place]) Mother Family Medical History: Cancer Additional Family Medical History / Comment(s): BREAST CANCER General Exam - General Exam Comments Initial Comments: GENERAL: Patient is well-developed and well-nourished. Patient is nontoxic and well- hydrated and is in mild distress. ENT: Neck is soft and supple. No significant lymphadenopathy is noted. Oropharynx is clear. Moist mucous membranes. Neck has full range of motion without eliciting any pain. EYES: The sclera were anicteric and conjunctiva were pink and moist. Extraocular movements were intact and pupils were equal round and reactive to light. Eyelids were unremarkable. PULMONARY: Patient's breath sounds on the are increased compared to the right CARDIOVASCULAR: There is a regular rate and rhythm without any murmurs gallops or rubs. ABDOMEN: Soft and nontender with normal bowel sounds. No palpable organomegaly was noted. There is no palpable pulsatile mass. SKIN: Skin is clear with no lesions or rashes and otherwise unremarkable. NEUROLOGIC: Patient is alert and oriented x3. Cranial nerves II through XII are grossly intact. Motor and sensory are also intact. Normal speech, volume and content. Symmetrical smile. MUSCULOSKELETAL: Normal extremities with adequate strength and full range of motion. No lower extremity swelling or edema. No calf tenderness. LYMPHATICS: No significant lymphadenopathy is noted PSYCHIATRIC: Normal psychiatric evaluation. Limitations: no limitations Course Vital Signs 03/09/19 03/09/19 10:53 11:08 Temperature 98.2 F Pulse Rate 123 H Respiratory 22 22 Rate Blood Pressure 120/75 O2 Sat by Pulse 97 Oximetry Medical Decision Making - Medical Decision Making EKG shows sinus tachycardia at 116 bpm RI interval is 164 QRS is 70 QT interval 02 QTC is 419 per patient's EKG shows no ST segment elevation or depression or T wave abnormalities are noted Patient's chest x-ray shows a large pleural effusion on the right which is larger than the last chest x-ray. I spoke with some physicians in the agreed to admit the patient admitted the patient wrote admitting orders. I consult pulmonology. - Lab Data Result diagrams: 03/09/19 12:18 03/09/19 12:18 Lab Results 03/09/19 03/09/19 03/09/19 Range/Units 12:18 12:18 12:18 WBC 9.8 (3.8-10.6) k/uL RBC 3.83 (3.80-5.40) m/uL Hgb 11.0 L (11.4-16.0) gm/dL Hct 35.0 (34.0-46.0) % MCV 91.3 (80.0-100.0) fL MCH 28.8 (25.0-35.0) pg MCHC 31.5 (31.0-37.0) g/dL RDW 16.7 H (11.5-15.5) % Plt Count 489 H (150-450) k/uL Neutrophils % 85 % Lymphocytes % 9 % Monocytes % 4 % Eosinophils % 1 % Basophils % 1 % Neutrophils # 8.3 H (1.3-7.7) k/uL Lymphocytes # 0.8 L (1.0-4.8) k/uL Monocytes # 0.4 (0-1.0) k/uL Eosinophils # 0.1 (0-0.7) k/uL Basophils # 0.1 (0-0.2) k/uL Hypochromasia Slight Anisocytosis Slight PT 10.4 (9.0-12.0) sec INR 1.0 (<1.2) APTT 25.9 (22.0-30.0) sec Sodium 141 (137-145) mmol/L Potassium 4.9 (3.5-5.1) mmol/L Chloride 104 (98-107) mmol/L Carbon Dioxide 27 (22-30) mmol/L Anion Gap 10 mmol/L BUN 30 H (7-17) mg/dL Creatinine 0.87 (0.52-1.04) mg/dL Est GFR (CKD-EPI)AfAm 72 (>60 ml/min/1.73 sqM) Est GFR (CKD-EPI)NonAf 62 (>60 ml/min/1.73 sqM) Glucose 158 H (74-99) mg/dL Calcium 9.0 (8.4-10.2) mg/dL Total Bilirubin 0.3 (0.2-1.3) mg/dL AST 60 H (14-36) U/L ALT 39 (9-52) U/L Alkaline Phosphatase 112 (38-126) U/L Troponin I (0.000-0.034) ng/mL Total Protein 6.6 (6.3-8.2) g/dL Albumin 3.5 (3.5-5.0) g/dL 03/09/19 Range/Units 12:18 WBC (3.8-10.6) k/uL RBC (3.80-5.40) m/uL Hgb (11.4-16.0) gm/dL Hct (34.0-46.0) % MCV (80.0-100.0) fL MCH (25.0-35.0) pg MCHC (31.0-37.0) g/dL RDW (11.5-15.5) % Plt Count (150-450) k/uL Neutrophils % % Lymphocytes % % Monocytes % % Eosinophils % % Basophils % % Neutrophils # (1.3-7.7) k/uL Lymphocytes # (1.0-4.8) k/uL Monocytes # (0-1.0) k/uL Eosinophils # (0-0.7) k/uL Basophils # (0-0.2) k/uL Hypochromasia Anisocytosis PT (9.0-12.0) sec INR (<1.2) APTT (22.0-30.0) sec Sodium (137-145) mmol/L Potassium (3.5-5.1) mmol/L Chloride (98-107) mmol/L Carbon Dioxide (22-30) mmol/L Anion Gap mmol/L BUN (7-17) mg/dL Creatinine (0.52-1.04) mg/dL Est GFR (CKD-EPI)AfAm (>60 ml/min/1.73 sqM) Est GFR (CKD-EPI)NonAf (>60 ml/min/1.73 sqM) Glucose (74-99) mg/dL Calcium (8.4-10.2) mg/dL Total Bilirubin (0.2-1.3) mg/dL AST (14-36) U/L ALT (9-52) U/L Alkaline Phosphatase (38-126) U/L Troponin I <0.012 (0.000-0.034) ng/mL Total Protein (6.3-8.2) g/dL Albumin (3.5-5.0) g/dL Disposition Clinical Impression: Dyspnea, Pleural effusion Disposition: ADMITTED IP TO THIS HOSP Referrals: Milan Chu MD [Primary Care Provider] - 1-2 days Time of Disposition: 14:21
[2019-03-09] MEDS ORDERED: MORPHINE SULFATE 2 MG/ML SYRINGE IVP STA ×3 (12:30→16:03)
[2019-03-09 12:38] LABS: Anisocytosis Slight; Basophils # (A) 0.1 k/uL (0-0.2); Basophils % (A) 1 %; Eosinophils # (A) 0.1 k/uL (0-0.7); Eosinophils % (A) 1 %; Hypochromasia Slight; Lymphocytes # (A) 0.8 k/uL (1.0-4.8); Lymphocytes % (A) 9 %; MCH 28.8 pg (25.0-35.0); MCHC 31.5 g/dL (31.0-37.0); MCV 91.3 fL (80.0-100.0); Mean Platelet Volume 6.3; Monocytes # (A) 0.4 k/uL (0-1.0); Monocytes % (A) 4 %; Neutrophils # (A) 8.3 k/uL (1.3-7.7); Neutrophils % (A) 85 %; Platelet Count 489 k/uL (150-450); RBC 3.83 m/uL (3.80-5.40); RDW 16.7 % (11.5-15.5); WBC 9.8 k/uL (3.8-10.6)
[2019-03-09 12:48] LABS: Albumin 3.5 g/dL (3.5-5.0); Potassium 4.9 mmol/L (3.5-5.1); Total Bilirubin 0.3 mg/dL (0.2-1.3); Total Protein 6.6 g/dL (6.3-8.2)
[2019-03-09 12:56] LABS: Partial Thromboplastin Time 25.9 sec (22.0-30.0); Prothrombin Time 10.4 sec (9.0-12.0)
--- NOTE | 2019-03-09 12:57 | XR ---
EXAMINATION TYPE: XR chest 2V DATE OF EXAM: 03/09/2019 COMPARISON: 03/02/2019 HISTORY: Difficulty breathing TECHNIQUE: Frontal and lateral views of the chest are obtained. FINDINGS: Increasing right perihilar opacity is seen as well as increasing moderate right pleural ef fusion. Right lung base is obscured. Right lung apex and left lung are clear. Left axillary surgical clips are identified. There is diffuse osseous demineralization present. Surgical anchors are seen wi thin the right humeral head. Mild multilevel degenerative changes of the thoracic spine are seen. IMPRESSION: Increasing right perihilar consolidation may represent pneumonia, atelectasis or metasta sis in this patient with known prostatic breast cancer. There is also an increasing moderate pleural effusion.
[2019-03-09] MEDS ORDERED: LORazepam 2 MG/ML INJ IV STA (16:03)
[2019-03-09] MEDS ORDERED: ALBUTEROL NEBULIZED 2.5 MG/3 ML INHALATION PRN (17:29)
[2019-03-09] MEDS ORDERED: HYDROcodone/APAP 5-325MG 1 EACH TAB PO PRN (17:29)
[2019-03-09] MEDS ORDERED: MORPHINE SULFATE 2 MG/ML SYRINGE IV PRN (17:29)
[2019-03-09] MEDS ORDERED: NALOXONE 0.4 MG/ML 1 ML VIAL IV PRN (17:29)
--- NOTE | 2019-03-09 19:17 | P.HPIM ---
History of Present Illness H&P Date: 03/09/19 Chief Complaint: shortness of breath 83-year-old female with PMH of atrial fibrillation, breast cancer with metastatic disease to the lungs, diabetes mellitus, hyperlipidemia presents the ED for progressive shortness of breath. Patient was recently discharged on 03/03/2018. CT of the chest showed pleural effusion bilaterally concerning for diffuse metastatic disease. Patient underwent thoracocentesis which alleviated her symptoms at that time. She was discharged home with home hospice. Cytology was pending at that time. Cytology confirms metastatic disease there is positive for estrogen receptors.patient denies any headache, nausea and vomiting, fever and chills, cough, chest pain, palpitations, changes in urination or bowel habits. Patient reports decreased appetite. Patient also reports some pedal edema. She does complain of right lower quadrant pain that across her lower was around her back to the spine. She was diagnosed as shingles 3 years ago, desc ribes the pain as burning in nature, 10 out of 10 with touch. In the ED, vital signs are stable except for heart rate as high as 120. CBC showed hemoglobin of 11. Correlation panel was negative. CMP showed BUN of 30, glucose 158. Troponin was less than 0.012 with EKG showing sinus tachycardia. Review of Systems Pertinent positives and negatives as discussed in HPI, a complete review of systems was performed and all other systems are negative. Past Medical History Past Medical History: Atrial Fibrillation, Cancer, Diabetes Mellitus, Hyperlipidemia, Hypertension Additional Past Medical History / Comment(s): SHINGLES, RIGHT SIDE ABD. BREAST CANCER 1998 OR, Reoccurence 2009-with 35 radiation treatments. NEW TUMOR FOUND THIS MARCH 2016, APPT WITH DR. MORE. OCC INCONT OF URINE (DEPENDS). "TACHYCARDIA". BOWEL OBSTRUCTION. History of Any Multi-Drug Resistant Organisms: None Reported Past Surgical History: Appendectomy, Bowel Resection, Breast Surgery, Cholecystectomy Additional Past Surgical History / Comment(s): 03/25/16 tumor left chest area (positive). 12/26/15 Bowel resection. 1998, Bilateral mastectomy. JAMES CATARACTS. Past Anesthesia/Blood Transfusion Reactions: No Reported Reaction Past Psychological History: No Psychological Hx Reported Smoking Status: Former smoker Past Alcohol Use History: None Reported Past Drug Use History: None Reported - Past Family History Father Family Medical History: Myocardial Infarction ([place]) Mother Family Medical History: Cancer Additional Family Medical History / Comment(s): BREAST CANCER Medications and Allergies Home Medications Medication Instructions Recorded Confirmed Type Metoprolol Tartrate [Lopressor] 100 mg PO BID 12/24/15 03/09/19 History Aspirin [[place] Aspirin EC] 162 mg PO DAILY 02/28/19 03/09/19 History Dicyclomine [Bentyl] 10 mg PO TID 02/28/19 03/09/19 History Mirtazapine [Remeron] 15 mg PO HS 02/28/19 03/09/19 History Albuterol Nebulized [Ventolin 2.5 mg INHALATION RT-QID PRN #90 03/03/19 03/09/19 Rx Nebulized] nebu Acetaminophen-Codeine 300-30mg 2 tab PO Q4HR PRN 03/09/19 03/09/19 History [Tylenol w/codeine #3] Allergies Allergy/AdvReac Type Severity Reaction Status Date / Time hydromorphone [From Dilaudid] AdvReac Hallucinati Verified 03/09/19 14:14 ons Physical Exam Vitals: Vital Signs Temp Pulse Resp BP Pulse Ox 03/09/19 16:30 117 H 18 147/84 99 03/09/19 16:00 18 143/87 97 03/09/19 15:30 141/82 96 03/09/19 15:00 126/74 97 03/09/19 14:30 129/75 96 03/09/19 14:00 133/82 97 03/09/19 13:30 139/79 96 03/09/19 13:00 131/71 97 03/09/19 12:30 131/71 97 03/09/19 12:00 130/76 95 03/09/19 11:30 121/69 98 03/09/19 11:08 22 03/09/19 11:00 120/75 98 03/09/19 10:53 98.2 F 123 H 22 120/75 97 Intake and Output 03/09/19 03/09/19 03/09/19 06:59 14:59 22:59 Other: Weight 40.823 kg General: [appears dyspneic], [no distress], [appears at stated age] Derm: [warm], [dry] Head: [atraumatic], [normocephalic], [symmetric] Eyes: [EOMI], [no lid lag], [anicteric sclera] Mouth: [no lip lesion], [mucus membranes moist] Cardiovascular: [S1S2 reg], [tachycardia], [positive posterior tibial pulse bilateral], Lungs: [decreased breath sounds bilateral], [no rhonchi, no rales] , [no accessory muscle use] Abdominal: [soft], [ nontender to palpation], [no guarding], [no appreciable organomegaly] Ext: [no gross muscle atrophy], [pedal edema], [no contractures] Neuro: [no focal neuro deficits] Psych: [Alert], [oriented], [appropriate affect] Results CBC & Chem 7: 03/09/19 12:18 03/09/19 12:18 Labs: Abnormal Lab Results - Last 24 Hours (Table) 03/09/19 03/09/19 Range/Units 12:18 12:18 Hgb 11.0 L (11.4-16.0) gm/dL RDW 16.7 H (11.5-15.5) % Plt Count 489 H (150-450) k/uL Neutrophils # 8.3 H (1.3-7.7) k/uL Lymphocytes # 0.8 L (1.0-4.8) k/uL BUN 30 H (7-17) mg/dL Glucose 158 H (74-99) mg/dL AST 60 H (14-36) U/L Thrombosis Risk Factor Assmnt - Choose All That Apply Each Risk Factor Represents 3 Points: Age 75 years or older Thrombosis Risk Factor Assessment Total Risk Factor Score: 3 Thrombosis Risk Factor Assessment Level: Moderate Risk Assessment and Plan Assessment: Assessment and Plan Right pleural effusion, likely malignant secondary to stage IV metastatic breast cancer Anorexia Atrial fibrillation Diabetes mellitus Hypertension Metastatic disease to the lung confirmed on CT of the chest with right-sided pleural effusion given history of breast cancer on last admission. Plans: O2 per NC to maintain O2 saturation greater than 92%. Pulmonology consulted, ultrasound of the chest ordered to evaluate pleural effusion. Patient to go home with hospice on previous admission. BMI 15.9. Plans: Add Ensure. Follow dietitian consult. Continue Mirtazapine, hopefully to help with appetite. Stable. Plans: Continue metoprolol. No anticoagulation given DNR/DNI status. [id number] glucose 158. Plans: Regular Accu-Cheks. No insulin due to poor appetite. BP 147/84. Plans: Continue metoprolol. Monitor vitals, adjust medications as necessary. Patient admitted for shortness of breath. Positive right-sided pleural e ffusion, likely malignant secondary to stage IV metastatic breast cancer. Family already set up hospice at home. Pulmonology consulted for thoracocentesis. Possible Pleurx catheter by IR. Patient is DNR/DNI. She is currently enrolled in hospice at home.
--- NOTE | 2019-03-09 19:22 | US ---
EXAMINATION TYPE: US chest DATE OF EXAM: 03/09/2019 COMPARISON: US 03/01/2019 CLINICAL HISTORY: Pleural effusion. TECHNIQUE: Targeted ultrasound of the posterior lower bilateral hemithoraces EXAM MEASUREMENTS: RIGHT HEMITHORAX: Right Pleural Effusion pocket size: 12.75 cm Right skin surface to fluid distance: 1.61 cm Lung seen within mid portion of pocket at a depth of 7.81 cm. Right side marked for possible thoracentesis outside the dept. LEFT HEMITHORAX: no fluid seen Left side NOT marked. No fluid seen left hemithorax. Pulmonologists are able to review the images in the patient?s EMR. IMPRESSIONS: RIGHT PLEURAL EFFUSION.
[2019-03-09] MEDS ORDERED: LORazepam 0.5 MG TAB PO PRN (19:56)
[2019-03-09] MEDS: LORazepam 1 MG TAB PO PRN (20:11)
[2019-03-09] MEDS ORDERED: MIRTAZAPINE 15 MG TAB PO SCH (21:00)
[2019-03-09 21:14] VITALS: BP 154/76; TEMP 98.7
[2019-03-09] MEDS: METOPROLOL TARTRATE 50 MG TAB PO SCH (21:54)
[2019-03-09] MEDS ORDERED: LORazepam 0.5 MG TAB ONE (23:40)
[2019-03-10] MEDS ORDERED: MORPHINE SULFATE 2 MG/ML SYRINGE ONE (03:45)
[2019-03-10 06:07] VITALS: PULSE 105
[2019-03-10 06:08] VITALS: RESP 14
[2019-03-10] MEDS: LORazepam 1 MG TAB PO PRN ×2 (07:55→15:19)
[2019-03-10] MEDS: METOPROLOL TARTRATE 50 MG TAB PO SCH (07:56)
--- NOTE | 2019-03-10 10:30 | P.CNPUL ---
History of Present Illness Consult date: 03/10/19 Requesting physician: Emil Rhodes Reason for consult: dyspnea, abnormal CXR/CT (Recurrent right sided pleual effusion) Chief complaint: Shortness of breath History of present illness: This is a very pleasant 83-year-old female patient who follows with Dr. Chu as her primary care physician. She has a history of diabetes mellitus, hyperlipidemia, hypertension, atrial fibrillation, shingles. Chest has a history of recurrent breast cancer initially in 1998 and was status post bilateral mastectomy. A recurrence in 2009 with 35 subsequent radiation treatments. New tumor on the left chest was found in March 2016 and she was treated with oral chemotherapy through 2017 and then quit taking them on her own. She had recently been discharged from here for shortness of breath and had been found to have a significant right-sided pleural effusion. She had undergone thoracentesis by Dr. Dodd on 03/02/2019. The fluid was positive for metastatic breast adenocarcinoma. She represented here yesterday with complaints of increasing shortness of breath. Chest x-ray showed recurrent ri ght-sided pleural effusion. We're consulted for the same. Ultrasound of the chest revealed significant recurrent effusion on the right 12.75 cm. She is seen today in consultation on the regular medical floor. She is currently resting fairly comfortably in bed. Appears somewhat dyspneic at rest. She is quite weak and frail. Cachectic. She is maintaining O2 saturations in the low 90s on 6 L high flow nasal cannula. She's tachycardic. Afebrile. Blood culture reveals no growth. White count 9.8. Hemoglobin 11.0. Creatinine 0.87. Her overall prognosis remains quite poor. Her and daughter are at the bedside. They are now interested in possible comfort care. She would not t olerate Pleurx catheter placement at this point. Review of Systems ROS unobtainable: due to mental status Past Medical History Past Medical History: Atrial Fibrillation, Cancer, Diabetes Mellitus, Hyperlipidemia, Hypertension Additional Past Medical History / Comment(s): SHINGLES, RIGHT SIDE ABD. BREAST CANCER 1998 OR, Reoccurence 2009-with 35 radiation treatments. NEW TUMOR FOUND THIS MARCH 2016, APPT WITH DR. MORE. OCC INCONT OF URINE (DEPENDS). "TACHYCARDIA". BOWEL OBSTRUCTION. History of Any Multi-Drug Resistant Organisms: None Reported Past Surgical History: Appendectomy, Bowel Resection, Breast Surgery, Cholecystectomy Additional Past Surgical History / Comment(s): 03/25/16 tumor left chest area (positive). 12/26/15 Bowel resection. 1999, Bilateral mastectomy. JAMES CATARACTS. Past Anesthesia/Blood Transfusion Reactions: No Reported Reaction Past Psychological History: No Psychological Hx Reported Smoking Status: Former smoker Past Alcohol Use History: None Reported Past Drug Use History: None Reported - Past Family History Father Family Medical History: Myocardial Infarction ([place]) Mother Family Medical History: Cancer Additional Family Medical History / Comment(s): BREAST CANCER Medications and Allergies Home Medications Medication Instructions Recorded Confirmed Type Metoprolol Tartrate [Lopressor] 100 mg PO BID 12/24/15 03/09/19 History Aspirin [[place] Aspirin EC] 162 mg PO DAILY 02/28/19 03/09/19 History Dicyclomine [Bentyl] 10 mg PO TID 02/28/19 03/09/19 History Mirtazapine [Remeron] 15 mg PO HS 02/28/19 03/09/19 History Albuterol Nebulized [Ventolin 2.5 mg INHALATION RT-QID PRN #90 03/03/19 03/09/19 Rx Nebulized] nebu Acetaminophen-Codeine 300-30mg 2 tab PO Q4HR PRN 03/09/19 03/09/19 History [Tylenol w/codeine #3] Allergies Allergy/AdvReac Type Severity Reaction Status Date / Time hydromorphone [From Dilaudid] AdvReac Hallucinati Verified 03/09/19 14:14 ons Physical Exam Vitals: Vital Signs Temp Pulse Pulse Pulse Resp BP BP 03/10/19 05:38 105 H 14 03/09/19 23:40 105 H 03/09/19 21:12 98.7 F 132 H 16 154/76 03/09/19 20:00 95 15 147/82 03/09/19 19:25 97.6 F 22 147/82 03/09/19 18:38 100 16 03/09/19 18:30 120 H 24 157/87 03/09/19 17:00 20 148/100 03/09/19 16:30 117 H 18 147/84 03/09/19 16:00 18 143/87 03/09/19 15:30 141/82 03/09/19 15:00 126/74 03/09/19 14:30 129/75 03/09/19 14:00 133/82 03/09/19 13:30 139/79 03/09/19 13:00 131/71 03/09/19 12:30 131/71 03/09/19 12:00 130/76 03/09/19 11:30 121/69 03/09/19 11:08 22 03/09/19 11:00 120/75 03/09/19 10:53 98.2 F 123 H 22 120/75 Pulse Ox 03/10/19 05:38 93 L 03/09/19 23:40 93 L 03/09/19 21:12 92 L 03/09/19 20:00 95 03/09/19 19:25 95 03/09/19 18:38 03/09/19 18:30 95 03/09/19 17:00 97 03/09/19 16:30 99 03/09/19 16:00 97 03/09/19 15:30 96 03/09/19 15:00 97 03/09/19 14:30 96 03/09/19 14:00 97 03/09/19 13:30 96 03/09/19 13:00 97 03/09/19 12:30 97 03/09/19 12:00 95 03/09/19 11:30 98 03/09/19 11:08 03/09/19 11:00 98 03/09/19 10:53 97 Intake and Output 03/09/19 03/10/19 03/10/19 22:59 06:59 14:59 Intake Total 240 Balance 240 Intake: Oral 240 Other: Voiding Method Toilet Diaper # Voids 0 2 GENERAL EXAM: Frail, cachectic 83-year-old female patient. Sedate, resting in bed, mild respiratory distress. On 6 L nasal cannula. HEAD: Normocephalic. EYES: Normal reaction of pupils, equal size. NOSE: Clear with pink turbinates. THROAT: No erythema or exudates. NECK: No masses, no JVD. CHEST: No chest wall deformity. LUNGS: Equal air entry with crackles in the right lung base, diminished. CVS: S1 and S2 normal with no audible murmur, regular rhythm. ABDOMEN: No hepatosplenomegaly, normal bowel sounds, no guarding or rigidity. SPINE: No scoliosis or deformity SKIN: No rashes CENTRAL NERVOUS SYSTEM: No focal deficits, tone is normal in all 4 extremities. EXTREMITIES: There is no peripheral edema. No clubbing, no cyanosis. Quynh pheral pulses are intact. Results - Laboratory Findings CBC and BMP: 03/09/19 12:18 03/09/19 12:18 PT/INR, D-dimer PT 10.4 sec (9.0-12.0) 03/09/19 12:18 INR 1.0 (<1.2) 03/09/19 12:18 Abnormal lab findings: Abnormal Labs 03/09/19 03/09/19 12:18 12:18 Hgb 11.0 L RDW 16.7 H Plt Count 489 H Neutrophils # 8.3 H Lymphocytes # 0.8 L BUN 30 H Glucose 158 H AST 60 H - Diagnostic Findings Chest x-ray: image reviewed Assessment and Plan Assessment: Impression: #1 Dyspnea secondary to recurrent right-sided pleural effusion, previous th oracentesis was positive for metastatic breast adenocarcinoma. #2 Recurrent metastatic breast adenocarcinoma. Previous history of bilateral mastectomy, previous radiation treatment, previous chemotherapy. The patient stopped taking treatment in 2016. #3 History of atrial fibrillation. #4 Diabetes mellitus. #5 Hyperlipidemia. #6 Hypertension. #7 History of shingles. #8 History of bowel obstruction status post resection. Plan: The patient was seen and evaluated by Dr. Minor. He had a long discussion with the patient's daughter and who are at the bedside. She is quite frail a nd cachectic. Her over all prognosis is very poor. Would not tolerate any further treatment at this time. They are agreeable to hospice/comfort care. I, the cosigning physician, performed a history & physical examination of the patient. Lungs sounds diminished in the right lung. Maintaining good O2 saturations in the 90s on 6 L nasal cannula.. I discussed the assessment and plan of care with my nurse practitioner, Cleo Calvo. I attest to the above note as dictated by her. Time with Patient: Greater than 30
[2019-03-10] MEDS ORDERED: SCOPOLAMINE 1.5MG/72HR PATCH TRANSDERM SCH (11:00)
--- NOTE | 2019-03-10 12:33 | P.DS ---
Providers Date of admission: 03/09/19 14:23 Expected date of discharge: 03/10/19 Attending physician: Emil Rhodes MD Consults: 03/09/19 14:23 Consult Physician Urgent Consulting Provider: Krzysztof Dodd Consult Reason/Comments: Pleural effusion Do you want consulting provider notified?: Yes Primary care physician: [facility] Course: 83-year-old female with PMH of atrial fibrillation, breast cancer with metastatic disease to the lungs, diabetes mellitus, hyperlipidemia presents the ED for progressive shortness of breath. Patient was recently discharged on 02/13. CT of the chest showed pleural effusion bilaterally concerning for diffuse metastatic disease. Patient underwent thoracocentesis which alleviated her symptoms at that time. She was discharged home with home hospice. Cytology was pending at that time. Cytology confirms metastatic disease there is positive for estrogen receptors.patient denies any headache, nausea and vomiting, fever and chills, cough, chest pain, palpitations, changes in urination or bowel habits. Patient reports decreased appetite. Patient also reports some pedal edema. She does complain of right lower quadrant pain that across her lower was around her back to the spine. She was diagnosed as shingles 3 years ago, describes the pain as burning in nature, 10 out of 10 with touch. In the ED, vital signs are stable except for heart rate as high as 120. CBC showed hemoglobin of 11. Correlation panel was negative. CMP showed BUN of 30, glucose 158. Troponin was less than 0.012 with EKG showing sinus tachycardia. Ultrasound of the chest was performed for the pleural effusion. Pulmonology evaluated the patient and recommended no procedures as patient would not likely make it through surgery. IR and cardiothoracic consultation was canceled. Family decided along with the patient to pursue hospice at home. Patient was seen and examined. No acute events overnight. Family reports worsening breathing overnight. General: [appears dyspneic], [distress], [appears at stated age] Derm: [warm], [dry] Head: [atraumatic], [normocephalic], [symmetric] Eyes: [EOMI], [no lid lag], [anicteric sclera] Mouth: [no lip lesion], [mucus membranes moist] Cardiovascular: [S1S2 reg], [tachycardia] Lungs: [decreased breath sounds bilateral], [no rhonchi, no rales] , [no accessory muscle use] Assessment and Plan Right pleural effusion, likely malignant secondary to stage IV metastatic breast cancer Anorexia Atrial fibrillation Diabetes mellitus Hypertension Metastatic disease to the lung confirmed on CT of the chest with right-sided pleural effusion given history of breast cancer on last admission. Plans: Plans for hospice, no intervention BMI 15.9. Plans: Plans for hospice, no intervention Stable. Plans: Plans for hospice, no intervention [id number] glucose 158. Plans: Plans for hospice, no intervention BP 154/76. Plans: Plans for hospice, no intervention Plans to take patient home with home hospice. Family is at bedside. Will DC today. Pertinent Studies: Chest x-ray, chest ultrasound Patient Condition at Discharge: Critical Plan - Discharge Summary Discharge Rx Participant: No New Discharge Prescriptions: New Scopolamine 1.5MG/72Hr Patch [TransDerm Scop] 1 patch TRANSDERM Q72H patch Continue Metoprolol Tartrate [Lopressor] 100 mg PO BID Mirtazapine [Remeron] 15 mg PO HS Albuterol Nebulized [Ventolin Nebulized] 2.5 mg INHALATION RT-QID PRN #90 nebu PRN Reason: Shortness Of Breath Or Wheezing Discontinued Aspirin [[place] Aspirin EC] 162 mg PO DAILY Dicyclomine [Bentyl] 10 mg PO TID Acetaminophen-Codeine 300-30mg [Tylenol w/codeine #3] 2 tab PO Q4HR PRN PRN Reason: Moderate Pain Discharge Medication List Metoprolol Tartrate [Lopressor] 100 mg PO BID 12/24/15 [History] Mirtazapine [Remeron] 15 mg PO HS 02/28/19 [History] Albuterol Nebulized [Ventolin Nebulized] 2.5 mg INHALATION RT-QID PRN #90 nebu 03/03/19 [Rx] Scopolamine 1.5MG/72Hr Patch [TransDerm Scop] 1 patch TRANSDERM Q72H patch 03/10/19 [Rx] Follow up Appointment(s)/Referral(s): Milan Chu MD [Primary Care Provider] - 1-2 days [facility] Visiting Nurse, [NON-STAFF] - 1-2 Days (This is also the number for [facility]. ) Activity/Diet/Wound Care/Special Instructions: Plans for hospice at home. Discharge Disposition: HOME WITH HOSPICE
[2019-03-10 13:06] VITALS: BMI 15.9
== END 2019-03-10 15:54 | disposition hospice, home (50) ==
LOC: EC 10:50 → 3NMEDONC 14:23
PROVIDERS: ADMIT Family Medicine; ATTEND Family Medicine
DX: J90 Pleural effusion, not elsewhere classified (principal); C78.00 Secondary malignant neoplasm of unspecified lung; Z85.3 Personal history of malignant neoplasm of breast; R63.0 Anorexia; I48.91 Unspecified atrial fibrillation; E11.9 Type 2 diabetes mellitus without complications; I10 Essential (primary) hypertension; Z17.0 Estrogen receptor positive status [ER+]; R64 Cachexia; Z68.1 Body mass index [BMI] 19.9 or less, adult; R00.0 Tachycardia, unspecified; G89.29 Other chronic pain; R10.31 Right lower quadrant pain; E78.5 Hyperlipidemia, unspecified; R32 Unspecified urinary incontinence; R60.0 Localized edema; R53.1 Weakness; Z79.82 Long term (current) use of aspirin; Z79.899 Other long term (current) drug therapy; Z88.5 Allergy status to narcotic agent; Z86.19 Personal history of other infectious and parasitic diseases; Z87.19 Personal history of other diseases of the digestive system; Z90.49 Acquired absence of other specified parts of digestive tract; Z90.13 Acquired absence of bilateral breasts and nipples; Z98.42 Cataract extraction status, left eye; Z98.41 Cataract extraction status, right eye; Z87.891 Personal history of nicotine dependence; Z92.21 Personal history of antineoplastic chemotherapy; Z92.3 Personal history of irradiation; Z82.49 Family history of ischemic heart disease and other diseases of the circulatory system; Z80.3 Family history of malignant neoplasm of breast; Z66 Do not resuscitate
CPT/HCPCS: 96376 ×2; 96374; 96375; 99285; 36415; 93005; 80053; 84484; 85025; 85610; 85730; 71046; 76604; G0378 ×2; J2060; J2270 ×2